=== PATIENT | female | born 1985 | race Caucasian/White ===

== ENCOUNTER 2018-12-19 18:47 | Inpatient (IN) | payer OTHER ==
[~2018-12-19] VITALS: Ht 167.6 cm; Wt 106.1 kg
[~2018-12-19 18:47] MED LIST: IRON PO; SYNTHROID PO
--- OUTSIDE RECORDS SUMMARY | 2018-12-19 18:51 | XMS REPORT | Continuity of Care Document ---
Author Author [facility] [employer] Organization [facility] Address Unknown Phone Unavailable Care Team Providers Care Neurological Physiotherapist Name Role Phone [facility] [employer] Information [employer] Unavailable Unavailable Problems Problem Status Onset Date Classification Date Reported Comments Source PAIN IN KNEE-M25.569 STAT OK TO A Active 08/19/2015 [facility] 723.1 - CERVICALGIA Active 10/29/2014 [facility] [place] Discharge Diagnosis: Neck pain 09/30/2014 10/03/2014 [facility] Discharge Diagnosis: Headache 09/30/2014 10/03/2014 [facility] Discharge Diagnosis: Muscle strain 09/30/2014 10/03/2014 [facility] NECK PAIN Active 09/30/2014 [facility] Abdominal pain Active Problem 08/22/2015 [facility] Anemia Active Problem 08/22/2015 [facility] Gallbladder pain Resolved Problem 08/22/2015 [facility] Laparoscopic cholecystectomy Active Problem 08/22/2015 [facility] Thyroid disease1 Active Problem 08/22/2015 [facility] Tonsillitis Resolved Problem 08/22/2015 [facility] Medications Medication Details Route Status Patient Instructions Ordering Provider Order Date Source Cyclobenzaprine hydrochloride 10 MG Oral Tablet [Flexeril] 10 mg, PO, TID, PRN Muscle Spasm, X 10 day, # 30 tab, 0 Refill(s) Active 09/30/2014 [facility] Benadryl 12.5 mg, 0.25 mL, Route: IVP, Drug form: INJ, ONCE, Dosing Weight 156.818, kg, Priority: STAT, Start date: 09/30/14 12:15:00, Stop date: 09/30/14 12:15:00Notes: (Same as: Benadryl) Inactive 09/30/2014 [facility] ketOROLAC 30 mg/mL injectable solution 30 mg, 1 mL, Route: IV, Drug form: INJ, ONCE, Dosing Weight 156.818, kg, Start date: 09/30/14 12:15:00, Stop date: 09/30/14 12:15:00Notes: (Same as:Toradol) IV bolus must be given >15 seconds. Give IM administration slowly and deeply into the muscle. Not for use > 4 days MEDICATION WASTE Product Size: 30 mg Product Wasted: ___ mg Inactive 09/30/2014 [facility] Reglan 10 mg, 2 mL, Route: IVP, Drug form: INJ, ONCE, Dosing Weight 156.818, kg, Priority: STAT, Start date: 09/30/14 12:15:00, Stop date: 09/30/14 12:15:00Notes: (Same as: Reglan) Inactive 09/30/2014 [facility] Flexeril 10 mg, Route: PO, ONCE, Dosing Weight 156.818, kg, Priority: STAT, Start date: 09/30/14 11:18:00, Stop date: 09/30/14 11:18:00 Inactive 09/30/2014 [facility] Acetaminophen 325 MG / Hydrocodone Bitartrate 10 MG Oral Tablet [[place] 10/325] 1 tab, Route: PO, Dosing Weight 156.818, kg, ONCE, Start date: 09/30/14 11:18:00, Stop date: 09/30/14 11:18:00 Inactive 09/30/2014 [facility] Allergies, Adverse Reactions, Alerts Substance Category Reaction Severity Reaction type Status Date Reported Comments Source Ceclor Assertion Drug allergy Active [facility] Immunizations No Data Provided for This Section Results Order Name Results Value Reference Range Date Interpretation Comments Source CHEM PANEL Globulin 3.4 2.0 - 4.0 09/30/2014 [facility] CHEM PANEL A/G Ratio 1.1 0.7 - 1.6 09/30/2014 [facility] CHEM PANEL B/C Ratio 21 6 - 25 09/30/2014 [facility] CHEM PANEL AGAP 7.8 10.0 - 20.0 09/30/2014 [facility] CHEM PANEL Albumin Lvl 3.6 3.5 - 5.0 09/30/2014 [facility] CHEM PANEL ALT 22 0 - 65 09/30/2014 [facility] CHEM PANEL Glucose Lvl 86 70 - 99 09/30/2014 <sup>2</sup>Interpretive Data: Adult reference range values reflect the clinical guidelines
of the [employer]. [facility] CHEM PANEL AST 15 0 - 37 09/30/2014 [facility] CHEM PANEL Alk Phos 63 39 - 136 09/30/2014 [facility] CHEM PANEL Bili Total 0.6 0.2 - 1.3 09/30/2014 [facility] CHEM PANEL CO2 29 24 - 32 09/30/2014 [facility] CHEM PANEL BUN 17 7 - 22 09/30/2014 [facility] CHEM PANEL Total Protein 7.0 6.4 - 8.4 09/30/2014 [facility] CHEM PANEL eGFR 101 09/30/2014 <sup>1</sup>Result Comment: The eGFR is calculated using the CKD-EPI formula. In most young, healthy individuals the eGFR will be >90 mL/min/1.73m2. The eGFR declines with age. An eGFR of 60-89 may be normal in some populations, particularly the elderly, for whom the CKD-EPI formula has not been extensively validated. Use of the eGFR is not recommended in the following populations:& lt;br/>
Individuals with unstable creatinine concentrations, including patients and those with serious co-morbid conditions.

Patients with extremes in muscle mass or diet.

The data above are obtained from the National Kidney Disease Education Program (NKDEP) which additionally recommends that when the eGFR is used in patients with extremes of body mass index for purposes of drug dosing, the eGFR should be multiplied by the estimated BMI. [facility] CHEM PANEL Potassium Lvl 3.8 3.5 - 5.1 09/30/2014 [facility] CHEM PANEL Sodium Lvl 140 135 - 145 09/30/2014 [facility] CHEM PANEL Creatinine Lvl 0.8 0.5 - 1.4 09/30/2014 [facility] CHEM PANEL Calcium Lvl 8.2 8.5 - 10.5 09/30/2014 [facility] CHEM PANEL Chloride Lvl 107 95 - 109 09/30/2014 [facility] HEMATOLOGY Segs-Bands # 5.2 1.5 - 8.1 09/30/2014 [facility] HEMATOLOGY Lymphocytes # 2.2 1.0 - 5.5 09/30/2014 [facility] HEMATOLOGY Monocytes # 0.4 0.0 - 0.8 09/30/2014 [facility] HEMATOLOGY Eosinophils # 0.4 0.0 - 0.5 09/30/2014 [facility] HEMATOLOGY Basophils # 0.1 0.0 - 0.2 09/30/2014 [facility] HEMATOLOGY Basophils 1.1 0.0 - 1.0 09/30/2014 [facility] HEMATOLOGY Eosinophils 4.5 0.0 - 4.0 09/30/2014 [facility] [place] Monocytes 4.7 2.0 - 12.0 09/30/2014 [facility] [place] Lymphocytes 26.5 20.0 - 40.0 09/30/2014 [facility] [place] Segs 63.2 45.0 - 75.0 09/30/2014 [facility] MCHC 33.1 32.0 - 36.0 09/30/2014 [facility] [place] RDW 14.5 11.5 - 14.5 09/30/2014 [facility] [place] MCH 27.6 27.0 - 31.0 09/30/2014 [facility] [place] MCV 83.5 80.0 - 98.0 09/30/2014 [facility] [place] Platelet 305 133 - 450 09/30/2014 [facility] [place] MPV 7.8 7.4 - 10.4 09/30/2014 [facility] [place] RBC 4.41 4.20 - 5.40 09/30/2014 [facility] [place] Hgb 12.2 12.0 - 16.0 09/30/2014 [facility] [place] WBC 8.2 3.7 - 10.4 09/30/2014 [facility] [place] Hct 36.9 36.0 - 48.0 09/30/2014 [facility] Pathology Reports No Data Provided for This Section Diagnostic Reports Report Value Date Source Knee wo contrast MRI MR LEFT KNEE WITHOUT CONTRAST HISTORY: pain in knee, 30-year-old female reports left knee pain and mechanical symptoms and instability medially for approximately 2 days after twisting injury during fall, pain with squatting, pain with weightbearing COMPARISON: None available TECHNIQUE: Multiplanar, multisequence noncontrast imaging of the knee. FINDINGS: MENISCI: 1. Medial meniscus: Intact. 2. Lateral meniscus: Intact. CARTILAGE: 3. Medial compartment cartilage: Normal. 4. Lateral compartment cartilage: Normal. CRUCIATE LIGAMENTS: 5. Anterior cruciate ligament: Relatively large elongated cystlike fluid collection within the substance of the ACL measures approximately 5 x 5 mm in cross- section and 32 mm in length, extending throughout the entire ligament. 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 6. Posterior cruciate ligament: Normal. COLLATERAL LIGAMENTS: 7. Medial collateral ligament complex: Mild soft tissue inflammatory signal tracking along the tibial collateral ligament and mild thickening and abnormal signal of the tibial collateral ligament at the femoral attachment compatible with grade 1-2 medial collateral ligament sprain. 8. Lateral collateral ligament complex: Normal. EXTENSOR MECHANISM: 9. Moderate diffuse thinning of the cartilage of the lateral patellar facet with prominent surface fibrillation compatible with moderate chondromalacia. 10. Marked lateral patellar subluxation measuring 12 mm. 11. No evidence of recent transient patellar dislocation. 12. Partial tear of the MPFL at the attachment to the medial patella (axial series 14 images 11-13) without significant soft tissue inflammatory signal suggesting this may represent a chronic tear. 13. Inflammatory signal in the superior aspect of the infrapatellar fat-pad. 14. Borderline excessive lateralization of the tibial tubercle. Tibial tubercle- trochlear groove distance: 19 mm. (normal less than 15-20 mm) 15. Moderate lateral patellar tilting. Patellar tilt angle: 23 degrees. (normal less than 15 degrees) 16. No patella brii. Patellar height ratio: 1.27. (normal less than 1.3) 17. Intact patellar and quadriceps tendons. OTHER: 18. No fracture or bone contusion. 19. Moderate joint effusion. IMPRESSION: 1. [id number] medial collateral ligament sprain. 2. Prominent intraligamentous fluid throughout the ACL with degenerative subcortical osseous cystic change in the tibia at the ACL attachment compatible with degenerative intraligamentous ganglion cyst. 3. Multiple findings associated with lateral patellar tracking/lateral patellofemoral impingement with chronic-appearing partial tear of the MPFL at the patellar attachment. 4. Moderate joint effusion. Thank you for referring your patient to [facility] and [facility]. SL: [id number] 08/19/2015 [facility] Consultation Notes No Data Provided for This Section Discharge Summaries No Data Provided for This Section History and Physicals No Data Provided for This Section Vital Signs Vital Sign Value Date Comments Source Height 165.1 cm 09/30/2014 [facility] BMI Calculated 57.53 09/30/2014 [facility] Weight 156.818 09/30/2014 [facility] Respitory Rate 20 09/30/2014 [facility] Heart Rate 71 09/30/2014 [facility] Temperature Oral (F) 98.2 F 09/30/2014 [facility] Systolic (mm Hg) 139 09/30/2014 [facility] Diastolic (mm Hg) 86 09/30/2014 [facility] Encounters Location Location Details Encounter Type Encounter Number Reason For Visit Attending Provider ADM Date DC Date Status Source [facility] [id number] Marin Chang 09/30/2014 09/30/2014 [facility] Outpatient [id number] Maximiliano Escalante 08/19/2015 08/20/2015 [facility] Outpatient [id number] VINCENZO SANDY 04/04/2017 Active [facility] [id number] LINUS MATAMOROS 04/10/2017 Active [facility] [id number] LINUS MATAMOROS 04/25/2017 Active [facility] [id number] VINCENZO SENAH 05/02/2017 Active [facility] [id number] VINCENZO SANDY 05/11/2017 Active [facility] [id number] JUAN A ESTILL 05/26/2017 Active [facility] [id number] VINCENZO SENAH 06/27/2017 Active [facility] [id number] VINCENZO SANDY 07/11/2017 Active [facility] [id number] LINUS MATAMOROS 07/17/2017 Active [facility] [id number] LINUS MATAMOROS 08/01/2017 Active [facility] [id number] VINCENZO SANDY 08/08/2017 Active [facility] [id number] LINUS MATAMOROS 08/30/2017 Active [facility] [id number] LINUS MATAMOROS 09/07/2017 Active [facility] [id number] LINUS MATAMOROS 09/18/2017 Active [facility] [id number] VINCENZO [facility] 09/19/2017 Active [facility] [id number] VINCENZO SANDY 10/27/2017 Active [facility] [id number] JUAN A ESTILL 11/10/2017 Active [facility] [id number] JUAN A ESTILL 12/07/2017 Active [facility] [id number] JUAN A ESTILL 12/21/2017 Active [facility] [id number] VINCENZO SENAH 01/09/2018 Active [facility] [id number] VINCENZO SANDY 02/13/2018 Active [facility] [id number] LINUS MATAMOROS 02/28/2018 Active [facility] [id number] LINUS MATAMOROS 03/12/2018 Active [facility] Out[facility] [id number] LINUS MATAMOROS 04/09/2018 Active [facility] Out[facility] [id number] LINUS MATAMOROS 07/09/2018 Active [facility] Out[facility] [id number] LINUS MATAMOROS 08/06/2018 Active [facility] Outpatient [id number] VINCENZO [facility] 08/07/2018 Active [facility] Out[facility] [id number] ILNUS MATAMOROS 08/16/2018 Active [facility] Outpatient [id number] Vincenzo [facility] 01/01/2019 [facility] Procedures Procedure Code Date Perfomer Comments Source Cholecystectomy [id number] [facility] Neck procedure [id number] [facility] Tonsillectomy [id number] [facility] Assessment and Plan No Data Provided for This Section Plan of Care No Data Provided for This Section Social History Social History Date Source Social History TypeResponse Smoking Status Never smoker; Ready to change: No; Concerns about tobacco use in household: No; Exposure to Tobacco Smoke None; Cigarette Smoking Last 365 Days No; Reg Smoking Cessation Counseling No 09/30/2014 [facility] Family History No Data Provided for This Section Advance Directives No Data Provided for This Section Functional Status No Data Provided for This Section
--- OUTSIDE RECORDS SUMMARY | 2018-12-19 18:52 | XMS REPORT ---
Author [facility] Address Unknown Phone Unavailable Care Team Providers Care Publicist Name Role Phone Unavailable Unavailable Payers Payer Name Policy Type Policy Number Effective Date Expiration Date Problems This patient has no known problems. Allergies, Adverse Reactions, Alerts Allergy Name Allergy Type Status Severity Reaction(s) Onset Date Inactive Date Treating Clinician Comments cefaclor DA Active U 2018-07-07 00:00:00 CECLOR DA Active AL 2013-11-26 00:00:00 Medications This patient has no known medications. Results Test Description Test Time Test Comments Text Results Atomic Results Result Comments GLUBED 2018-07-07 22:55:00 GLUBED (test code=GLUBED) 157 mg/dL 74-106 Performed by certified hydration plant operator at [facility] - CT ABD PELVIS [id number] 21:24:00 Name: IBIS BYERS [facility] : 1985 Age/S: 33 / F [place] [facility] Unit #: [id number] Loc: [place] [address] Phys: Devan So MD Acct: [id number] Dis Date: Status: REG ER PHONE #: [phone] Exam Date: 07/07/20182024 FAX #: [phone] Reason: R flank pain/abd pain EXAMS: CPT CODE: [id number] CT ABD PELVIS W/CONT 13304 HISTORY: Right flank pain/abdominal pain TECHNIQUE: Immediate and delayed [address] images were obtained through the abdomen and pelvis after IV administration of 100 mL of Isovue-370 contrast. Sagittal and coronal reformatted images were generated. Automated exposure control for dose reduction. COMPARISON: 11/26/13 FINDINGS: Lung bases are clear. Normal heart size. Cholecystectomy. Liver, pancreas, spleen, adrenal glands, and kidneys are unremarkable. Limited evaluation the GI tract without oral contrast. Postsurgical changes of the stomach. Small bowel, appendix, and colon are unremarkable. No free air or free fluid. No lymphadenopathy. Abdominal aorta is normal in caliber. Urinary bladder is unremarkable. Uterus is unremarkable. Ovaries are not well delineated. Small pelvic free fluid. Regional osseous structures are unremarkable. IMPRESSION: No acute intra-abdominal process. Cholecystectomy. Postsurgical changes of the stomach. at 2124 Reported and signed by: Dasha Posada D.O. CC: Devan So MD; Alverto Liz MD Technologist:GIANFRANCO SANCHEZ CT CTDI: DLP: Trnscb Da te/Time: 07/07/2018 (2123) [email or web address] Orig Print D/T: S: 0 07/07/2018 (2126) CTDI: DLP: PAGE 1 Signed Report VENOUS BLOOD [id number] 21:09:00 * Test Item Value Reference Range Comments VENOUS BLOOD GAS PH (test code=PHV) 7.40 7.30-7.40 VENOUS BLOOD GAS PCO2 (test code=PCO2V) 40.9 mm Hg 39.0-51.0 VENOUS BLOOD GAS PO2 (test code=PO2V) < 44.2 mm Hg 30.0-50.0 VBG HCO3 (test code=HCO3V) 24.9 mmol/L 17.0-30.0 VBG BASE EXCESS (test code=YAMIL) 0.1 mmol/L -5.0-5.0 VENOUS BLOOD GAS O2 SAT. (test code=O2SATV) 49 % 94-98 VENOUS BLOOD GAS FIO2 (test code=FIO2V) 21.0 PT. HGB (test code=PHGBVBG) 12.0 gram/dL 11.5-15.5 VENOUS BLOOD GAS SITE (test code=SITEV) IVC HEMATOCRIT (test code=HCT/VBG) 35 % 42-52 HGB O2 SAT (test code=HBOSAT) 48.5 % 94.00-98.00 CARBOXYHEMOGLOBIN (test code=HOHGBT) 0.8 %totalHg 0.5-1.5 METHEMOGLOBIN (test code=METHGB) 0.6 % 0.0-1.50 HCG SERUM [id number] 20:15:00* Test Item Value Reference Range Comments HCG SERUM QUAL (test code=HCGQL) NEGATIVE NEGATIVE This HCGQL test is NOT applicable for MALE patients.Check with nurse about probable order error.If Tumor Marker Test needed, nurse should order test "HCGTU"(Test #[id number]) [id number] 20:06:00* Test Item Value Reference Range Comments GLUBED (test code=GLUBED) 237 mg/dL 74-106 Performed by certified hydration plant operator at [facility] URINALYSIS [id number] 18:45:00* Test Item Value Reference Range Comments UA COLOR (test code=COLU) YELLOW YELLOW UA APPEARANCE (test code=APPU) CLEAR CLEAR UA GLUCOSE DIPSTICK (test code=DGLUU) >=500 mg/dL NEGATIVE UA BILIRUBIN DIPSTICK (test code=BILU) NEGATIVE mg/dL NEGATIVE UA KETONE DIPSTICK (test code=KETU) Negative mg/dL NEGATIVE UA SPECIFIC GRAVITY (test code=SGU) 1.029 1.001-1.035 UA BLOOD DIPSTICK (test code=TYLOR) Negative NEGATIVE UA PH DIPSTICK (test code=KACIE) 7.0 5.0-8.0 UA PROTEIN DIPSTICK (test code=PROU) Negative mg/dL NEGATIVE UA UROBILINIOGEN DIPSTICK (test code=URO) 0.2 mg/dL NEGATIVE UA NITRITE DIPSTICK (test code=SINDY) NEGATIVE NEGATIVE UA LEUKOCYTE ESTERASE W REFLEX (test code=LEUUR) NEGATIVE NEGATIVE UA WBC (test code=WBCU) 0-5 #/HPF 0-5 UA RBC (test code=RBCU) 0-3 #/HPF 0-5 UA EPITHELIAL CELLS (test code=EPIU) FEW per HPF FEW UA BACTERIA (test code=BACU) FEW #/HPF NONE UA HYALINE CAST (test code=HYALU) 0-2 #/LPF 0-5 UA MUCUS (test code=MUCU) FEW #/LPF FEW Urine Source? Clean CatchURINALYSIS [id number] 18:42:00* Test Item Value Reference Range Comments UA COLOR (test code=COLU) YELLOW YELLOW UA APPEARANCE (test code=APPU) CLEAR CLEAR UA GLUCOSE DIPSTICK (test code=DGLUU) >=500 mg/dL NEGATIVE UA BILIRUBIN DIPSTICK (test code=BILU) NEGATIVE mg/dL NEGATIVE UA KETONE DIPSTICK (test code=KETU) Negative mg/dL NEGATIVE UA SPECIFIC GRAVITY (test code=SGU) 1.029 1.001-1.035 UA BLOOD DIPSTICK (test code=TYLOR) Negative NEGATIVE UA PH DIPSTICK (test code=KACIE) 7.0 5.0-8.0 UA PROTEIN DIPSTICK (test code=PROU) Negative mg/dL NEGATIVE UA UROBILINIOGEN DIPSTICK (test code=URO) 0.2 mg/dL NEGATIVE UA NITRITE DIPSTICK (test code=SINDY) NEGATIVE NEGATIVE UA LEUKOCYTE ESTERASE W REFLEX (test code=LEUUR) NEGATIVE NEGATIVE UA WBC (test code=WBCU) per HPF 0-5 Urine Source? Clean CatchBASIC METABOLIC [id number] 18:00:00* Test Item Value Reference Range Comments SODIUM (test code=NA) 138 mmol/L 136-145 POTASSIUM (test code=K) 3.6 mmol/L 3.5-5.1 CHLORIDE (test code=CL) 103.0 mmol/L 98-107 CARBON DIOXIDE (test code=CO2) 27.0 mmol/L 21-32 ANION GAP (test code=GAP) 11.6 10-20 GLUCOSE (test code=GLU) 312 mg/dL 74-106 BLOOD UREA NITROGEN (test code=BUN) 16 mg/dL 7-18 GLOMERULAR FILTRATION RATE (test code=GFR) > 60 mL/min >=60 Estimated GFR by using Modified MDRD formula.Chronic kidney disease is defined as either kidney damageor GFR <60 mL/min/1.73 m2 for >3 months. CREATININE (test code=CREAT) 0.90 mg/dL 0.55-1.02 Note change in reference range due to change in reagent. BUN/CREATININE RATIO (test code=BUN/CREA) 18.2 10-20 CALCIUM (test code=CA) 8.7 mg/dL 8.5-10.1 HEPATIC FUNCTION [id number] 18:00:00* Test Item Value Reference Range Comments TOTAL PROTEIN (test code=PROT) 6.9 gram/dL 6.4-8.2 ALBUMIN (test code=ALB) 3.8 g/dL 3.4-5.0 GLOBULIN (test code=GLOB) 3.1 gram/dL 2.7-4.2 ALBUMIN/GLOBULIN RATIO (test code=A/G) 1.2 0.75-1.50 BILIRUBIN TOTAL (test code=BILT) 1.00 mg/dL 0.0-1.0 BILIRUBIN DIRECT (test code=BILD) 0.24 mg/dL 0.0-0.20 SGOT/AST (test code=AST) 9 IUnit/L 15-37 SGPT/ALT (test code=ALT) 20 IUnit/L 12-78 ALKALINE PHOSPHATASE TOTAL (test code=ALKP) 48 IUnit/L 45-117 Note change in reference range due to change in reagent. [id number] 18:00:00* Test Item Value Reference Range Comments TROPONIN-I (test code=TROPI) <0.015 ng/mL 0-0.045 BASIC METABOLIC [id number] 17:35:00* Test Item Value Reference Range Comments SODIUM (test code=NA) 138 mmol/L 136-145 POTASSIUM (test code=K) 3.6 mmol/L 3.5-5.1 CHLORIDE (test code=CL) 103.0 mmol/L 98-107 CARBON DIOXIDE (test code=CO2) mmol/L 21-32 ANION GAP (test code=GAP) 10-20 GLUCOSE (test code=GLU) mg/dL 74-106 BLOOD UREA NITROGEN (test code=BUN) mg/dL 7-18 GLOMERULAR FILTRATION RATE (test code=GFR) mL/min >=60 CREATININE (test code=CREAT) mg/dL 0.55-1.02 BUN/CREATININE RATIO (test code=BUN/CREA) 10-20 CALCIUM (test code=CA) mg/dL 8.5-10.1 HEPATIC FUNCTION [id number] 17:35:00* Test Item Value Reference Range Comments TOTAL PROTEIN (test code=PROT) gram/dL 6.4-8.2 ALBUMIN (test code=ALB) g/dL 3.4-5.0 GLOBULIN (test code=GLOB) gram/dL 2.7-4.2 ALBUMIN/GLOBULIN RATIO (test code=A/G) 0.75-1.50 BILIRUBIN TOTAL (test code=BILT) mg/dL 0.0-1.0 BILIRUBIN DIRECT (test code=BILD) mg/dL 0.0-0.20 SGOT/AST (test code=AST) IUnit/L 15-37 SGPT/ALT (test code=ALT) IUnit/L 12-78 ALKALINE PHOSPHATASE TOTAL (test code=ALKP) IUnit/L 45-117 [id number] 17:35:00* Test Item Value Reference Range Comments TROPONIN-I (test code=TROPI) ng/mL 0-0.045 CBC W/AUTO [id number] 17:21:00* Test Item Value Reference Range Comments WHITE BLOOD CELL (test code=WBC) 10.1 K/mm3 4.5-12.5 RED BLOOD CELL (test code=RBC) 4.20 mill/mm3 3.7-5.2 HEMOGLOBIN (test code=HGB) 12.2 gram/dL 11.5-15.5 HEMATOCRIT (test code=HCT) 38.7 % 36.0-46.0 MEAN CELL VOLUME (test code=MCV) 92.1 fL 80-98 MEAN CELL HGB (test code=MCH) 29.0 picogram 27.0-33.0 MEAN CELL HGB CONCETRATION (test code=MCHC) 31.5 gram/dL 33.0-36.0 RED CELL DISTRIBUTION WIDTH (test code=RDW) 13.2 % 11.6-16.2 RED CELL DISTRIBUTION WIDTH SD (test code=RDW-SD) 43.8 fL 37.0-51.0 PLATELET COUNT (test code=PLT) 339 K/mm3 150-450 MEAN PLATELET VOLUME (test code=MPV) 9.6 fL 6.7-11.0 NEUTROPHIL % (test code=NT%) 64.6 % 39.0-69.0 IMMATURE GRANULOCYTE % (test code=IG%) 0.4 % 0.0-5.0 LYMPHOCYTE % (test code=LY%) 25.7 % 25.0-55.0 MONOCYTE % (test code=MO%) 7.4 % 0.0-10.0 EOSINOPHIL % (test code=EO%) 1.4 % 0.0-5.0 BASOPHIL % (test code=BA%) 0.5 % 0.0-1.0 NUCLEATED RBC % (test code=NRBC%) 0.0 % 0-0 NEUTROPHIL # (test code=NT#) 6.52 K/mm3 1.8-7.7 IMMATURE GRANULOCYTE # (test code=IG#) 0.04 x10 3/uL 0-0.03 LYMPHOCYTE # (test code=LY#) 2.60 K/mm3 1.0-5.0 MONOCYTE # (test code=MO#) 0.75 K/mm3 0-0.8 EOSINOPHIL # (test code=EO#) 0.14 K/mm3 0.0-0.5 BASOPHIL # (test code=BA#) 0.05 K/mm3 0.0-0.2 NUCLEATED RBC # (test code=NRBC#) 0.00 K/mm3 0.0-0.1 MANUAL DIFF REQUIRED (test code=MDIFF) NO CBC W/AUTO [id number] 17:20:00* Test Item Value Reference Range Comments WHITE BLOOD CELL (test code=WBC) K/mm3 4.5-12.5 RED BLOOD CELL (test code=RBC) mill/mm3 3.7-5.2 HEMOGLOBIN (test code=HGB) 12.2 gram/dL 11.5-15.5 HEMATOCRIT (test code=HCT) 38.7 % 36.0-46.0 MEAN CELL VOLUME (test code=MCV) fL 80-98 MEAN CELL HGB (test code=MCH) picogram 27.0-33.0 MEAN CELL HGB CONCETRATION (test code=MCHC) gram/dL 33.0-36.0 RED CELL DISTRIBUTION WIDTH (test code=RDW) % 11.6-16.2 RED CELL DISTRIBUTION WIDTH SD (test code=RDW-SD) fL 37.0-51.0 PLATELET COUNT (test code=PLT) K/mm3 150-450 MEAN PLATELET VOLUME (test code=MPV) fL 6.7-11.0 NEUTROPHIL % (test code=NT%) % 39.0-69.0 IMMATURE GRANULOCYTE % (test code=IG%) % 0.0-5.0 LYMPHOCYTE % (test code=LY%) % 25.0-55.0 MONOCYTE % (test code=MO%) % 0.0-10.0 EOSINOPHIL % (test code=EO%) % 0.0-5.0 BASOPHIL % (test code=BA%) % 0.0-1.0 NEUTROPHIL # (test code=NT#) K/mm3 1.8-7.7 LYMPHOCYTE # (test code=LY#) K/mm3 1.0-5.0 MONOCYTE # (test code=MO#) K/mm3 0-0.8 EOSINOPHIL # (test code=EO#) K/mm3 0.0-0.5 BASOPHIL # (test code=BA#) K/mm3 0.0-0.2
--- OUTSIDE RECORDS SUMMARY | 2018-12-19 18:52 | XMS REPORT | Summary of Care ---
Author Author PEYTON SWAIN M.D. Unknown Address [facility] Phone Unavailable Care Team Providers Care Physician Coder Name Role Phone BRYNN Joshi, PEYTON Unavailable Unavailable SENG CHACON CT, SAMMI LAO Unavailable Unavailable KENA CHACON, GREER SIMEON Unavailable Unavailable PEYTON SWAIN MD Unavailable Unavailable SENG Joshi, SAMMI Unavailable Unavailable GLEN ETIENNE MD, HARRY Ball Unavailable Unavailable Unavailable Unavailable Functional Status Name Dates Details Functional status health issues are not documented Status: Name Dates Details Cognitive status health issues are not documented Status: Problems Name Dates Details S/P arthroscopic knee surgery (V45.89, Z98.890) Status: Active Left knee pain (719.46, M25.562) Status: Active Acute medial meniscal tear, right, initial encounter (836.0, S83.241A) Status: Active Tear of medial collateral ligament of knee, left, initial encounter (844.1, S83.412A) Status: Active Greater trochanteric bursitis of left hip (726.5, M70.62) Status: Active Greater trochanteric bursitis of both hips (726.5, M70.61) Status: Active Acute lumbar radiculopathy (724.4, M54.16) Status: Active Tear of right acetabular labrum, initial encounter (843.8, S73.191A) Status: Active Chronic rhinitis (472.0, J31.0) Status: Active Hypertrophy of nasal turbinates (478.0, J34.3) Status: Active Medications Name Dates Details Synthroid 50 MCG Oral Tablet TAKE 1 TABLET DAILY. Active Ferrous Sulfate TABS one tab QD PER CHART * Refills: 0 Active Methotrexate (Anti-Rheumatic) 2.5 MG Oral Tablet * Refills: 0 Active Cetirizine HCl 1 MG/ML SYRP * Refills: 0 Active Flonase SUSP * Refills: 0 Active metFORMIN HCl TABS * Refills: 0 Active Ipratropium [place] 0.06 % Nasal Solution USE 2 SPRAYS IN EACH NOSTRIL 2-3 TIMES DAILY. * Quantity: 1 Refills: 6 PEYTON SWAIN M.D. * Start : 14-Dec-2018 Active Allergies and Adverse Reactions Name Dates Details Ceclor CAPS (Allergy) Status: Active Past Medical History Name Dates Details History of arthritis (V13.4, Z87.39) Status: Resolved History of backache (V13.59, Z87.39) Status: Resolved History of hemorrhoids (V13.89, Z87.19) Status: Resolved History of hypothyroidism (V12.29, Z86.39) Status: Resolved History of Other and unspecified ovarian cysts (620.2, N83.20) Status: Resolved History of Unclassifiable eczema (692.9, L30.9) Status: Resolved Procedures Procedure Dates Details History of Neck Surgery Completed History of Cervical Vertebral Fusion Completed History of Gastric Surgery For Morbid Obesity Completed History of Cholecystectomy Completed History of Tonsillectomy With Adenoidectomy Completed Immunization Name Dates Details Immunizations not documented Family History Name Dates Details Family history of Hypertension (V17.49) Status: Active Family history of Systemic Lupus Erythematosus Status: Active Family history of Allergy (995.3, T78.40XA) Status: Active Family history of asthma (V17.5, Z82.5) Status: Active Name Dates Details Family history of Coronary Artery Disease (V17.49) Status: Active Family history of Hypertension (V17.49) Status: Active Family history of Skin Cancer (V16.8) Status: Active Family history of Esophageal Cancer (V16.0) Status: Active Social History Name Dates Details - Status: Name Dates Details Current some day smoker Never smoker Vital Signs Date Test Result Details [id number] BP Systolic 122 mm[Hg] Status: Comments: Location: LUE; Position: Sitting BP Diastolic 81 mm[Hg] Status: Comments: Location: LUE; Position: Sitting Height 66 in Status: Weight 242.0625 lb Status: Body Mass Index Calculated 39.07 kg/m2 Status: Body Surface Area Calculated 2.17 m2 Status: Heart Rate 98.4 /min Status: Results Date Description Value Details Results not documented Plan of Care Name Dates Details Planned Observations Planned Goals not documented Planned Encounters Appointment; PEYTON SWAIN M.D. On: 15-Jan-2019 10:15 Interventions Provided Medication Changes* Ipratropium [place] 0.06 % Nasal Solution - Start Labs/Procedures/Imaging* Tobacco Use Screening; Done: 14 Dec 2018 Plan* 1. Will begin Atrovent nasal spray for 4 weeks. FU in 4 weeks. Instructions Name Dates Details Instructions not documented Encounters Appointment; HARRY CARROLL M.D. Encounter Diagnosis: Problem not documented On: 27-Jul-2017 9:45 Appointment; HARRY CARROLL M.D. Encounter Diagnosis: Problem not documented On: 24-Aug-2017 10:15 Appointment; HARRY CARROLL M.D. Encounter Diagnosis: Problem not documented On: 21-Sep-2017 10:15 Appointment; HARRY CARROLL M.D. Encounter Diagnosis: Problem not documented On: 03-May-2018 11:00 Appointment; HARRY CARROLL M.D. Encounter Diagnosis: Problem not documented On: 03-May-2018 13:00 Appointment; HARRY CARROLL M.D. Encounter Diagnosis: Problem not documented On: 14-Jun-2018 9:30 Appointment; HARRY CARROLL M.D. Encounter Diagnosis: Problem not documented On: 25-Jun-2018 10:00 Appointment; HARRY CARROLL M.D. Encounter Diagnosis: Problem not documented On: 09-Jul-2018 13:00 Appointment; PEYTON SWAIN M.D. Encounter Diagnosis: Problem not documented On: 14-Dec-2018 10:00
--- OUTSIDE RECORDS SUMMARY | 2018-12-19 18:52 | XMS REPORT | Summary of Care ---
Author Author [facility] Organization [facility] Address Unknown Phone Unavailable Encounter HQ Aj_narcisa(FIN) [id number] Date(s): 08/19/15 - 08/19/15 [facility] [address] [place] [address]- Discharge Disposition: Home Attending Physician: Maximiliano Escalante MD Referring Physician: Maximiliano Escalante MD Vital Signs No data available for this section Problem List Condition Effective Dates Status Health Status Informant Abdominal Active pain(Confirmed) Anemia(Confirmed) Active Gallbladder Resolved pain(Confirmed) Laparoscopic Active cholecystectomy(Conf irmed) Thyroid Active disease(Confirmed)1 Tonsillitis(Confirme Resolved d) 1on meds Allergies, Adverse Reactions, Alerts Substance Reaction Severity Status Ceclor Active Medications No data available for this section Results No data available for this section Immunizations No data available for this section Procedures Procedure Date Related Diagnosis Body Site Cholecystectomy Neck procedure Tonsillectomy Social History Social History Type Response Smoking Status Never smoker; Ready to change: No; Concerns about tobacco use in household: No; Exposure to Tobacco Smoke None; Cigarette Smoking Last 365 Days No; Reg Smoking Cessation Counseling No Assessment and Plan No data available for this section
--- OUTSIDE RECORDS SUMMARY | 2018-12-19 18:52 | XMS REPORT | Summary of Care ---
Author Organization Unknown Address Unknown Phone Unavailable Encounter LEWIS Schaefer(KURT) [id number] Date(s): 09/30/14 - 09/30/14 [facility] [address] [place] [address]- [phone] Discharge Diagnosis: Neck pain Discharge Diagnosis: Headache Discharge Diagnosis: Muscle strain Discharge Disposition: Home Physician Attending: Marin Downing MD Vital Signs Most recent to 1 oldest [Reference Range]: Height 165.1 cm (09/30/14 10:53 AM) Temperature Oral 98.2 DegF [96.4-99.1 DegF] (09/30/14 10:53 AM) Blood Pressure 139/86 mmHg [90-140/60-90 mmHg] (09/30/14 10:53 AM) Respiratory Rate 20 BRMIN [14-20 BRMIN] (09/30/14 10:53 AM) Peripheral Pulse 71 bpm Rate [60-100 bpm] (09/30/14 10:53 AM) Weight 156.818 kg (09/30/14 10:53 AM) Body Mass Index 57.53 m2 (09/30/14 10:53 AM) Problem List Condition Effective Dates Status Health Status Informant Abdominal Active pain(Confirmed) Anemia(Confirmed) Active Gallbladder Resolved pain(Confirmed) Laparoscopic Active cholecystectomy(Conf irmed) Thyroid Active disease(Confirmed)1 Tonsillitis(Confirme Resolved d) 1on meds Allergies, Adverse Reactions, Alerts Substance Reaction Severity Status Ceclor Active Medications Benadryl 12.5 mg, 0.25 mL, Route: IVP, Drug form: INJ, ONCE, Dosing Weight 156.818, kg, P riority: STAT, Start date: 09/30/14 12:15:00, Stop date: 09/30/14 12:15:00 Notes: (Same as: Benadryl) Start Date: 09/30/14 Stop Date: 09/30/14 Status: Completed Flexeril 10 mg, Route: PO, ONCE, Dosing Weight 156.818, kg, Priority: STAT, Start date: 0 09/30/14 11:18:00, Stop date: 09/30/14 11:18:00 Start Date: 09/30/14 Stop Date: 09/30/14 Status: Completed Flexeril 10 mg oral tablet 10 mg, PO, TID, PRN Muscle Spasm, X 10 day, # 30 tab, 0 Refill(s) Start Date: 09/30/14 Stop Date: 10/10/14 Status: Ordered ketOROLAC 30 mg/mL injectable solution 30 mg, 1 mL, Route: IV, Drug form: INJ, ONCE, Dosing Weight 156.818, kg, Start d ate: 09/30/14 12:15:00, Stop date: 09/30/14 12:15:00 Notes: (Same as:Toradol) IV bolus must be given >15 seconds. Give IM administration slowly and deeply into the muscle.Not for use > 4 days MEDICATION WASTE Product Size: 30 mgProduct Wasted: ___ mg Start Date: 09/30/14 Stop Date: 09/30/14 Status: Completed [place] 10/325 oral tablet 1 tab, Route: PO, Dosing Weight 156.818, kg, ONCE, Start date: 09/30/14 11:18:00 , Stop date: 09/30/14 11:18:00 Start Date: 09/30/14 Stop Date: 09/30/14 Status: Completed Reglan 10 mg, 2 mL, Route: IVP, Drug form: INJ, ONCE, Dosing Weight 156.818, kg, Priori ty: STAT, Start date: 09/30/14 12:15:00, Stop date: 09/30/14 12:15:00 Notes: (Same as: Reglan) Start Date: 09/30/14 Stop Date: 09/30/14 Status: Completed Results ELECTROLYTES Most recent to 1 oldest [Reference Range]: Sodium Lvl [135-145 140 mEq/L mEq/L] (09/30/14 12:41 PM) Potassium Lvl 3.8 mEq/L [3.5-5.1 mEq/L] (09/30/14 PM) Chloride Lvl [95-109 107 mEq/L mEq/L] (09/30/14 PM) CO2 [24-32 mEq/L] 29 mEq/L (09/30/14 PM) AGAP [10.0-20.0 7.8 mEq/L mEq/L] *LOW* (09/30/14) CHEM PANEL Most recent to 1 oldest [Reference Range]: Creatinine Lvl 0.8 mg/dL [0.5-1.4 mg/dL] (09/30/14 PM) eGFR 101 mL/min/1.73m2 1 *NA* (09/30/14 PM) BUN [7-22 mg/dL] 17 mg/dL (09/30/14 PM) B/C Ratio [6-25] 21 (09/30/14 PM) Glucose Lvl [70-99 86 mg/dL 2 mg/dL] (09/30/14 PM) Total Protein 7.0 g/dL [6.4-8.4 g/dL] (09/30/14 PM) Albumin Lvl [3.5-5.0 3.6 g/dL g/dL] (09/30/14 PM) Globulin [2.0-4.0 3.4 g/dL g/dL] (09/30/14 PM) A/G Ratio [0.7-1.6] 1.1 (09/30/14 PM) Calcium Lvl 8.2 mg/dL [8.5-10.5 mg/dL] *LOW* (09/30/14 PM) ALT [0-65 unit/L] 22 unit/L (09/30/14 PM) AST [0-37 unit/L] 15 unit/L (09/30/14 PM) Alk Phos [39-136 63 unit/L unit/L] (09/30/14 PM) Bili Total [0.2-1.3 0.6 mg/dL mg/dL] (09/30/14 PM) 1Result Comment: The eGFR is calculated using the CKD-EPI formula. In most young, healthy individuals the eGFR will be >90 mL/min/1.73m2. The eGFR declines with age. An eGFR of 60-89 may be normal in some populations, particularly the elderly, for whom the CKD-EPI formula has not been extensively validated. Use of the eGFR is not recommended in the following populations: Individuals with unstable creatinine concentrations, including patients and those with serious co-morbid conditions. Patients with extremes in muscle mass or diet. The data above are obtained from the National Kidney Disease Education Program ( NKDEP) which additionally recommends that when the eGFR is used in patients with extremes of body mass index for purposes of drug dosing, the eGFR should be mul tiplied by the estimated BMI. 2Interpretive Data: Adult reference range values reflect the clinical guidelines of the [place] [employer]. HEMATOLOGY Most recent to 1 oldest [Reference Range]: WBC [3.7-10.4 K/CMM] 8.2 K/CMM (09/30/14:41 PM) RBC [4.20-5.40 4.41 M/CMM M/CMM] (09/30/1441 PM) Hgb [12.0-16.0 g/dL] 12.2 g/dL (09/30/1441 PM) Hct [36.0-48.0 %] 36.9 % (09/30/14:41 PM) MCV [80.0-98.0 fL] 83.5 fL (09/30/14:41 PM) MCH [27.0-31.0 pg] 27.6 pg (09/30/14 PM) MCHC [32.0-36.0 33.1 g/dL g/dL] (09/30/14:41 PM) RDW [11.5-14.5 %] 14.5 % (09/30/1441 PM) Platelet [133-450 305 K/CMM K/CMM] (09/30/1441 PM) MPV [7.4-10.4 fL] 7.8 fL (09/30/14:41 PM) Segs [45.0-75.0 %] 63.2 % (5/12/15 12:41 PM) Lymphocytes 26.5 % [20.0-40.0 %] (09/30/14 12:41 PM) Monocytes [2.0-12.0 4.7 % %] (09/30/14 12:41 PM) Eosinophils [0.0-4.0 4.5 % %] *HI* (09/30/14 12:41 PM) Basophils [0.0-1.0 1.1 % %] *HI* (09/30/14 12:41 PM) Segs-Bands # 5.2 K/CMM [1.5-8.1 K/CMM] (09/30/14 12:41 PM) Lymphocytes # 2.2 K/CMM [1.0-5.5 K/CMM] (09/30/14 12:41 PM) Monocytes # [0.0-0.8 0.4 K/CMM K/CMM] (09/30/14 12:41 PM) Eosinophils # 0.4 K/CMM [0.0-0.5 K/CMM] (09/30/14 12:41 PM) Basophils # [0.0-0.2 0.1 K/CMM K/CMM] (09/30/14 12:41 PM) Immunizations No data available for this section [...]
[2018-12-19] MEDS ORDERED: ONDANSETRON HCL INJ 2MG/ML 2ML 2 MG/ML VIAL IV ONE (19:33)
[2018-12-19] MEDS ORDERED: SODIUM CHLORIDE 0.9% 1000ML 1,000 ML IV STA (19:33)
[2018-12-19] MEDS ORDERED: DIPHENHYDRAMINE HCL INJ 50 MG/ML VIAL IV ONE (19:45)
[2018-12-19] MEDS ORDERED: LIDOCAINE VISC 2% SOLN 15 ML UDC PO ONE (19:45)
[2018-12-19 19:58] LABS: BASOPHILS # (AUTO) 0.1 (0.0-0.1); BASOPHILS % 0.9 % (0.0-1.0); EOSINOPHILS # (AUTO) 0.2 (0.0-0.4); EOSINOPHILS % 3.1 % (0.0-6.0); HEMOGLOBIN 12.4 g/dL (12.0-16.0); LYMPHOCYTES % 28.2 % (18.0-39.1); MEAN CORPUSCULAR HEMOGLOBIN 26.2 pg (28-32); MEAN CORPUSCULAR VOLUME 84.6 fL (81-99); MONOCYTES # (AUTO) 0.4 (0.2-0.8); MONOCYTES % 5.3 % (4.4-11.3); NEUTROPHILS # (AUTO) 4.4 (2.1-6.9); NEUTROPHILS % 62.2 % (38.7-80.0); PLATELET COUNT 300 x10e3/uL (140-360); RED BLOOD COUNT 4.73 x10e6/uL (3.6-5.1); RED CELL DISTRIBUTION WIDTH 17.9 % (11.7-14.4)
[2018-12-19 20:18] LABS: ALANINE AMINOTRANSFERASE 16 IU/L (0-55); ALBUMIN 4.3 g/dL (3.5-5.0); ALBUMIN/GLOBULIN RATIO 1.5 (0.8-2.0); ALKALINE PHOSPHATASE 56 IU/L (40-150); ANION GAP 15.5 mmol/L (8-16); BLOOD UREA NITROGEN 9 mg/dL (7-26); BUN/CREATININE RATIO 12 (6-25); CALCIUM 9.4 mg/dL (8.4-10.2); CARBON DIOXIDE 23 mmol/L (22-29); CHLORIDE 104 mmol/L (98-107); CREATININE, SERUM 0.75 mg/dL (0.57-1.11); EST GLOMERULAR FILTRATION RATE > 60 ML/MIN (60-); GLUCOSE 97 mg/dL (74-118); LIPASE 25 U/L (8-78); POTASSIUM 3.5 mmol/L (3.5-5.1); SODIUM 139 mmol/L (136-145)
[2018-12-19 20:27] LABS: BILIRUBIN,URINE NEGATIVE (NEGATIVE); CLARITY,URINE SL CLOUDY (CLEAR); COLOR,URINE YELLOW (YELLOW); KETONES,URINE 1+ (NEGATIVE); LEUKOCYTE ESTERASE ,URINE TRACE (NEGATIVE); NITRITE,URINE NEGATIVE (NEGATIVE); PROTEIN,URINE DIPSTICK NEGATIVE (NEGATIVE); URINE UROBILINOGEN 0.2 mg/dL (0.2 - 1)
[2018-12-19] MEDS ORDERED: MAGNESIUM/ALUMINUM/SIMETHICONE 30 ML UDC PO ONE (20:30)
[2018-12-19 20:38] LABS: AMORPHOUS SEDIMENT,URINE FEW (FEW); BACTERIA,URINE MODERATE /HPF; EPITHELIAL CELLS,URINE MODERATE /LPF; HYALINE CASTS 0-1 (0-1); PREGNANCY TEST, URINE NEGATIVE (NEGATIVE); WBC,URINE (MAN) 0-5 /HPF (0-5)
[2018-12-19 20:39] LABS: MUCUS,URINE FEW (RARE)
[2018-12-19] MEDS: BELLADONNA ALK/PHENOBARBITAL 5 ML UDC PO SCH (20:39)
--- NOTE | 2018-12-19 22:17 | NUR ---
BOLUS INFUSED, PT PRESSED CALL [facility] STATING FLUIDS ARE COMPLETE AND STILL HAS ABD PAIN, STATES PAIN DID IMPROVE AFTER GI COCKTAIL, BUT IS NOW RETURNED AND MOVED TO [facility]. AWAKE ALERT SKIN W/D RESP NONLAB. NAD NOTED.
--- NOTE | 2018-12-19 23:16 | Diagnostic Imaging Report ---
EXAM: Abdomen 1 View INDICATION: Nausea vomiting COMPARISON: None FINDINGS: No disproportionate dilation of small bowel loops. Gas within loops of large and small bowel. No renal calculi. No abnormal soft tissue masses. No pneumoperitoneum. No mass effect. No obvious ascites. Cholecystectomy clips in the right upper quadrant. Sutures in the left upper abdomen possibly related to prior gastric surgery. Lung bases clear. Mild degenerative changes in the spine. IMPRESSION: Nonspecific bowel gas pattern. Gas-filled loops of large and small bowel without overt dilation although early obstruction is possible. Also there appears to be postsurgical changes from prior gastric surgery. Signed by: Michael Gutierrez DO on 12/19/2018 11:13 PM
--- NOTE | 2018-12-19 23:44 | NUR ---
pt states she does not feel like she can drink anything. water given for PO challenge. awake alert skin w/d resp nonlab. nad noted.
[2018-12-20] MEDS ORDERED: SODIUM CHLORIDE 0.9% 1000ML 1,000 ML IV STA (00:08)
[2018-12-20] MEDS ORDERED: LEVOTHYROXINE88 MCG PO (00:15)
[2018-12-20] MEDS ORDERED: PROMETHAZINE HCL (IM) 25 MG/ML VIAL IV PRN (00:15)
[2018-12-20] MEDS ORDERED: DIPHENHYDRAMINE HCL INJ 50 MG/ML VIAL IV PRN (00:15)
[2018-12-20] MEDS ORDERED: IRON325 M1 PO (00:15)
[2018-12-20] MEDS ORDERED: ZOLPIDEM TARTRATE 5 MG TAB PO PRN (00:15)
[2018-12-20] MEDS ORDERED: ONDANSETRON HCL8 MG PO (00:15)
[2018-12-20] MEDS ORDERED: VITAMIN D250000 UNIT PO (00:15)
[2018-12-20] MEDS ORDERED: VENLAFAXINE H37.5 M1 PO (00:15)
--- OUTSIDE RECORDS SUMMARY | 2018-12-20 00:27 | XMS REPORT | Continuity of Care Document ---
Author Author [employer] Organization [employer] Address Unknown Phone Unavailable Care Team Providers Care [employer] Name Role Phone [facility] [email or web address] Information [employer] Unavailable Unavailable Problems Problem Status Onset Date Classification Date Reported Comments Source PAIN IN KNEE-M25.569 STAT OK TO A Active 08/19/2015 [facility] 723.1 - CERVICALGIA Active 10/29/2014 [facility] [place] Discharge Diagnosis: Neck pain 09/30/2014 10/03/2014 [facility] Discharge Diagnosis: Headache 09/30/2014 10/03/2014 [facility] Discharge Diagnosis: Muscle strain 09/30/2014 10/03/2014 [facility] NECK PAIN Active 09/30/2014 [facility] Abdominal pain Active Problem 08/22/2015 [facility] Anemia Active Problem 08/22/2015 [facility] Gallbladder pain Resolved Problem 08/22/2015 [facility] Laparoscopic cholecystectomy Active Problem 08/22/2015 [facility] Thyroid disease1 Active Problem 08/22/2015 on meds [facility] Tonsillitis Resolved Problem 08/22/2015 [facility] Medications Medication Details Route Status Patient Instructions Ordering Provider Order Date Source Cyclobenzaprine hydrochloride 10 MG Oral Tablet [Flexeril] 10 mg, PO, TID, PRN Muscle Spasm, X 10 day, # 30 tab, 0 Refill(s) Active 09/30/2014 [facility] Benadryl 12.5 mg, 0.25 mL, Route: IVP, Drug form: INJ, ONCE, Dosing Weight 156.818, kg, Priority: STAT, Start date: 09/30/14 12:15:00, Stop date: 09/30/14 12:15:00Notes: (Same as: Benadryl) Inactive 09/30/2014 [facility] ketOROLAC 30 mg/mL injectable solution 30 [...] mg Product Wasted: ___ mg Inactive 09/30/2014 [facility] Reglan 10 mg, 2 mL, Route: IVP, Drug form: INJ, ONCE, Dosing Weight 156.818, kg, Priority: STAT, Start date: 09/30/14 12:15:00, Stop date: 09/30/14 12:15:00Notes: (Same as: Reglan) Inactive 09/30/2014 [facility] Flexeril 10 mg, Route: PO, ONCE, Dosing Weight 156.818, kg, Priority: STAT, Start date: 09/30/14 11:18:00, Stop date: 09/30/14 11:18:00 Inactive 09/30/2014 [facility] Acetaminophen 325 MG / Hydrocodone Bitartrate 10 MG Oral Tablet [Jenison 10/325] 1 tab, Route: PO, Dosing Weight 156.818, kg, ONCE, Start date: 09/30/14 11:18:00, Stop date: 09/30/14 11:18:00 Inactive 09/30/2014 [facility] Allergies, Adverse Reactions, Alerts Substance Category Reaction Severity Reaction type Status Date Reported Comments Source Ceclor Assertion Drug allergy Active [facility] Immunizations No Data Provided for This Section Results Order Name Results Value Reference Range Date Interpretation Comments Source CHEM PANEL Globulin 3.4 2.0 - 4.0 09/30/2014 [facility] CHEM PANEL A/G Ratio 1.1 0.7 - 1.6 09/30/2014 [facility] CHEM PANEL B/C Ratio 21 6 - 25 09/30/2014 [facility] CHEM PANEL AGAP 7.8 10.0 - 20.0 09/30/2014 [facility] CHEM PANEL Albumin Lvl 3.6 3.5 - 5.0 09/30/2014 [facility] CHEM PANEL ALT 22 0 - 65 09/30/2014 [facility] CHEM PANEL Glucose Lvl 86 70 - 99 09/30/2014 <sup>2</sup>Interpretive Data: Adult reference range values reflect the clinical guidelines
of the [place] [employer]. [facility] CHEM PANEL AST 15 0 - 37 09/30/2014 [facility] CHEM PANEL Alk Phos 63 39 - 136 09/30/2014 [facility] CHEM PANEL Bili Total 0.6 0.2 - 1.3 09/30/2014 [facility] CHEM PANEL CO2 29 24 - 32 09/30/2014 [facility] CHEM PANEL BUN 17 7 - 22 09/30/2014 [facility] CHEM PANEL Total Protein 7.0 6.4 - 8.4 09/30/2014 [facility] CHEM PANEL eGFR 101 09/30/2014 <sup>1</sup>Result [...] should be multiplied by the estimated BMI. [facility] CHEM PANEL Potassium Lvl 3.8 3.5 - 5.1 09/30/2014 [facility] CHEM PANEL Sodium Lvl 140 135 - 145 09/30/2014 [facility] CHEM PANEL Creatinine Lvl 0.8 0.5 - 1.4 09/30/2014 [facility] CHEM PANEL Calcium Lvl 8.2 8.5 - 10.5 09/30/2014 [facility] CHEM PANEL Chloride Lvl 107 95 - 109 09/30/2014 [facility] HEMATOLOGY Segs-Bands # 5.2 1.5 - 8.1 09/30/2014 [facility] HEMATOLOGY Lymphocytes # 2.2 1.0 - 5.5 09/30/2014 [facility] HEMATOLOGY Monocytes # 0.4 0.0 - 0.8 09/30/2014 [facility] HEMATOLOGY Eosinophils # 0.4 0.0 - 0.5 09/30/2014 [facility] HEMATOLOGY Basophils # 0.1 0.0 - 0.2 09/30/2014 [facility] HEMATOLOGY Basophils 1.1 0.0 - 1.0 09/30/2014 [facility] HEMATOLOGY Eosinophils 4.5 0.0 - 4.0 09/30/2014 [facility] Monocytes 4.7 2.0 - 12.0 09/30/2014 [facility] Lymphocytes 26.5 20.0 - 40.0 09/30/2014 [facility] Segs 63.2 45.0 - 75.0 09/30/2014 [facility] MCHC 33.1 32.0 - 36.0 09/30/2014 [facility] RDW 14.5 11.5 - 14.5 09/30/2014 [facility] MCH 27.6 27.0 - 31.0 09/30/2014 [facility] MCV 83.5 80.0 - 98.0 09/30/2014 [facility] Platelet 305 133 - 450 09/30/2014 [facility] MPV 7.8 7.4 - 10.4 09/30/2014 [facility] RBC 4.41 4.20 - 5.40 09/30/2014 [facility] Hgb 12.2 12.0 - 16.0 09/30/2014 [facility] WBC 8.2 3.7 - 10.4 09/30/2014 [facility] Hct 36.9 36.0 - 48.0 09/30/2014 [facility] Pathology Reports No Data Provided for [...] contusion. 19. Moderate joint effusion. IMPRESSION: 1. Wazl-dv-hvhmevsl medial collateral ligament sprain. 2. Prominent intraligamentous fluid throughout the ACL with degenerative subcortical osseous cystic change in the tibia at the ACL attachment compatible with degenerative intraligamentous ganglion cyst. 3. Multiple findings associated with lateral patellar tracking/lateral patellofemoral impingement with chronic-appearing partial tear of the MPFL at the patellar attachment. 4. Moderate joint effusion. Thank you for referring your patient to [facility] and [facility]. SL: [id number] 08/19/2015 [facility] Consultation Notes No Data Provided for This Section Discharge Summaries No Data Provided for This Section History and Physicals No Data Provided for This Section Vital Signs Vital Sign Value Date Comments Source Height 165.1 cm 09/30/2014 [facility] BMI Calculated 57.53 09/30/2014 [facility] Weight 156.818 09/30/2014 [facility] Respitory Rate 20 09/30/2014 [facility] Heart Rate 71 09/30/2014 [facility] Temperature Oral (F) 98.2 F 09/30/2014 [facility] Systolic (mm Hg) 139 09/30/2014 [facility] Diastolic (mm Hg) 86 09/30/2014 [facility] Encounters Location Location Details Encounter Type Encounter Number Reason For Visit Attending Provider ADM Date DC Date Status Source [facility] [id number] Marin Chang 09/30/2014 09/30/2014 [facility] [id number] Maximiliano Escalante 08/19/2015 08/20/2015 [facility] Outpatient [id number] VINCENZO SANDY 04/04/2017 [facility] [id number] LINUS MATAMOROS 04/10/2017 Active [facility] [id number] LINUS MATAMOROS 04/25/2017 [facility] [id number] VINCENZO SENAH 05/02/2017 Active [facility] [id number] VINCENZO SANDY 05/11/2017 Active [facility] [id number] JUAN A ESTILL 05/26/2017 Active [facility] [id number] VINCENZO SENAH 06/27/2017 Active [facility] [id number] VINCENZO SANDY 07/11/2017 Active [facility] [id number] LINUS MATAMOROS 07/17/2017 Active [facility] [id number] LINUS MATAMOROS 08/01/2017 Active [facility] [id number] VINCENZO SANDY 08/08/2017 Active [facility] [id number] LINUS MATAMOROS 08/30/2017 Active [facility] [id number] LINUS MATAMOROS 09/07/2017 Active [facility] [id number] LINUS MATAMOROS 09/18/2017 Active [facility] [id number] VINCENZO [facility] 09/19/2017 Active [facility] [id number] VINCENZO SANDY 10/27/2017 Active [facility] [id number] JUAN A ESTILL 11/10/2017 Active [facility] [id number] JUAN A ESTILL 12/07/2017 Active [facility] [id number] JUAN A ESTILL 12/21/2017 Active [facility] [id number] VINCENZO SENAH 01/09/2018 Active [facility] [id number] VINCENZO SANDY 02/13/2018 Active [facility] [id number] LINUS MATAMOROS 02/28/2018 Active [facility] [id number] LINUS MATAMOROS 03/12/2018 Active [facility] [id number] LINUS MATAMOROS 04/09/2018 Active [facility] [id number] LINUS MATAMOROS 07/09/2018 Active [facility] [id number] LINUS MATAMOROS 08/06/2018 Active [facility] Outpatient [id number] VINCENZO [facility] 08/07/2018 Active [facility] [id number] LINUS MATAMOROS 08/16/2018 Active [facility] Outpatient [id number] Vincenzo [facility] 01/01/2019 [facility] Procedures Procedure Code Date Perfomer Comments Source Cholecystectomy [id number] [facility] Neck procedure [id number] [facility] Tonsillectomy [id number] [facility] Assessment and Plan No Data Provided for This Section Plan of Care No Data Provided for This Section Social History Social History Date Source Social History TypeResponse Smoking Status Never smoker; Ready to change: No; Concerns about tobacco use in household: No; Exposure to Tobacco Smoke None; Cigarette Smoking Last 365 Days No; Reg Smoking Cessation Counseling No 09/30/2014 [facility] Family History No Data Provided for This Section Advance Directives No Data Provided for This Section Functional Status No Data Provided for This Section
[2018-12-20] MEDS ORDERED: CETIRIZINE HCL10 MG PO (00:32)
[2018-12-20] MEDS ORDERED: METHOTREXATE2.5 MG PO (00:32)
[2018-12-20] MEDS ORDERED: GABAPENTIN600 MG PO (00:32)
[2018-12-20] MEDS ORDERED: ENBREL50 MG/1 M1 SC (00:32)
[2018-12-20] MEDS ORDERED: FLUTICASONE PRO16 GM (00:32)
[2018-12-20] MEDS ORDERED: MONTELUKAST SOD10 MG PO (00:32)
[2018-12-20] MEDS ORDERED: TOPIRAMATE50 MG PO (00:32)
[2018-12-20] MEDS ORDERED: METFORMIN HCL1000 MG PO (00:32)
[2018-12-20] MEDS ORDERED: IOPAMIDOL 370 MG/ML 200 ML INFUS..BTL INJ ONE (01:28)
[2018-12-20] MEDS ORDERED: SODIUM CHLORIDE 0.9% 50ML 50 ML ONE (01:28)
--- NOTE | 2018-12-20 02:46 | Diagnostic Imaging Report ---
EXAM: CT Abdomen and Pelvis WITH contrast INDICATION: Abdominal pain COMPARISON: None. TECHNIQUE: Abdomen and pelvis were scanned utilizing a multidetector helical scanner from the lung base to the pubic symphysis after administration of IV contrast. Coronal and sagittal reformations were obtained. Routine protocol was performed. Scan was performed when during portal venous phase. IV CONTRAST: 100 mL of Isovue 370 ORAL CONTRAST: None COMPLICATIONS: None RADIATION DOSE: Total DLP: 826 mGy*cm Estimated effective dose: (DLP x 0.015 x size factor) mSv CTDIvol has been reviewed. It is below the limits set by the Radiation Protocol Committee (RPC). Dose modulation, iterative reconstruction, and/or weight based adjustment of the mA/kV was utilized to reduce the radiation dose to as low as reasonably achievable. FINDINGS: LINES and TUBES: None. LOWER THORAX: Unremarkable HEPATOBILIARY: No focal hepatic lesions. No biliary ductal dilation. GALLBLADDER: There are cholecystectomy clips. SPLEEN: No splenomegaly. PANCREAS: No focal masses or ductal dilatation. ADRENALS: No adrenal nodules KIDNEYS/URETERS: Kidneys enhance symmetrically. No hydronephrosis. No cystic or solid mass lesions. No stones. GI TRACT: No abnormal distention, wall thickening, or evidence of bowel obstruction. Surgical changes of partial gastrectomy. Appendix is normal. PELVIC ORGANS/BLADDER: Unremarkable. LYMPH NODES: No lymphadenopathy. VESSELS: Unremarkable. PERITONEUM / RETROPERITONEUM: No free air or fluid. BONES: Unremarkable. SOFT TISSUES: Unremarkable. IMPRESSION: No acute intra-abdominal abnormalities. Surgical changes of partial gastrectomy without complication. Signed by: Michael Gutierrez DO on 12/20/2018 2:42 AM
[2018-12-20] MEDS: ONDANSETRON HCL INJ 2MG/ML 2ML 2 MG/ML VIAL IV PRN ×2 (02:54→07:51)
--- NOTE | 2018-12-20 02:58 | NUR ---
PT REPORTS NAUSEA INCREASED. PLACED ON HOSPITAL BED, AMBULATED TO RESTROOM. IV BOLUS STARTED. MEDICATED WITH ZOFRAN PER ORDERS.
[2018-12-20] MEDS: SODIUM CHLORIDE 0.9% 1000ML 1,000 ML IV SCH ×4 (03:52→23:12)
[2018-12-20 06:06] LABS: BASOPHILS # (AUTO) 0.1 (0.0-0.1); EOSINOPHILS # (AUTO) 0.3 (0.0-0.4); EOSINOPHILS % 4.5 % (0.0-6.0); HEMATOCRIT 32.7 % (34.2-44.1); HEMOGLOBIN 10.2 g/dL (12.0-16.0); LYMPHOCYTES # (AUTO) 1.6 (1.0-3.2); LYMPHOCYTES % 26.8 % (18.0-39.1); MEAN CORPUSCULAR HEMOGLOBIN 26.2 pg (28-32); MEAN CORPUSCULAR HGB CONC 31.2 g/dL (31-35); MEAN CORPUSCULAR VOLUME 84.1 fL (81-99); MONOCYTES # (AUTO) 0.4 (0.2-0.8); MONOCYTES % 6.2 % (4.4-11.3); NEUTROPHILS # (AUTO) 3.6 (2.1-6.9); NEUTROPHILS % 61.2 % (38.7-80.0); PLATELET COUNT 245 x10e3/uL (140-360); RED BLOOD COUNT 3.89 x10e6/uL (3.6-5.1); RED CELL DISTRIBUTION WIDTH 17.7 % (11.7-14.4)
[2018-12-20 06:25] LABS: ANION GAP 12.6 mmol/L (8-16); BLOOD UREA NITROGEN 9 mg/dL (7-26); BUN/CREATININE RATIO 13 (6-25); CALCIUM 8.1 mg/dL (8.4-10.2); CARBON DIOXIDE 21 mmol/L (22-29); CHLORIDE 109 mmol/L (98-107); CREATININE, SERUM 0.68 mg/dL (0.57-1.11); EST GLOMERULAR FILTRATION RATE > 60 ML/MIN (60-); GLUCOSE 112 mg/dL (74-118); POTASSIUM 3.6 mmol/L (3.5-5.1); SODIUM 139 mmol/L (136-145)
--- NOTE | 2018-12-20 06:54 | NUR ---
report to Micki
[2018-12-20] MEDS: MORPHINE SULFATE 2 MG/ML SYR 1ML IV PRN ×3 (07:51→15:12)
[2018-12-20] MEDS: FAMOTIDINE 20 MG/2 ML VIAL IV SCH ×2 (07:51→15:50)
[2018-12-20] MEDS: BELLADONNA ALK/PHENOBARBITAL 5 ML UDC PO SCH ×3 (08:01→20:27)
[2018-12-20 08:25] VITALS: BP 102/65
--- NOTE | 2018-12-20 08:38 | NUR ---
SITTING UP SMILING AND PLEASANT.VSS. ADMISSION INFO BEING DONE BY Roseline PT [email or web address]. CONTINUE TO MONITOR
[2018-12-20 08:55] VITALS: BP 102/65
[2018-12-20] MEDS ORDERED: PNEUMOCOCCAL VACCINE POLYVALENT 23 MCG/0.5 ML VIAL IM ONE (10:00)
[2018-12-20 14:28] VITALS: BP 122/82
[2018-12-20] MEDS: PROMETHAZINE 25MG/SOD CHL 0.9% 50 ML IV PRN (19:32)
[2018-12-20 20:00] VITALS: BP 115/68
[2018-12-20] MEDS: METOCLOPRAMIDE HCL 10 MG/2ML VIAL IV SCH (20:27)
[2018-12-20] MEDS: MONTELUKAST SODIUM 10 MG TAB PO SCH (20:27)
[2018-12-20] MEDS: SUCRALFATE 1 GM TAB PO SCH (20:27)
--- NOTE | 2018-12-20 21:52 | Consultation ---
DATE OF CONSULTATION: 12/20/2018 HISTORY OF PRESENT ILLNESS: The patient is a 33-year-old female, history of previous gastric sleeve resection, who presents with complaints of epigastric abdominal pain with associated nausea and vomiting. The patient says she has had a left costal margin left upper quadrant abdominal pain for quite some time. She had back surgery and this seemed to improve, but then the pain recurred about a month ago and then she developed nausea over the last few days. She says she is passing some flatus. CT scan of the abdomen and pelvis was done, which did not reveal any findings suggestive of obstruction, the only changes being from her gastrectomy. The patient also has had previous cholecystectomy. PAST MEDICAL HISTORY: Significant for her previous gastric sleeve resection as well as cholecystectomy. She has a history of asthma, hypothyroidism. ALLERGIES: SHE HAS ALLERGY TO CEFACLOR. MEDICATIONS: At home were cetirizine, vitamin D, Enbrel, iron, fluticasone, gabapentin, levothyroxine, metformin, methotrexate, montelukast, ondansetron, and topiramate. FAMILY HISTORY: Noncontributory. SOCIAL HISTORY: The patient does not smoke cigarettes or drink alcohol. REVIEW OF SYSTEMS: As stated above. She has had no fever, no weight loss. PHYSICAL EXAMINATION: GENERAL: The patient is awake and alert, in no distress. VITAL SIGNS: Normal. She is not tachycardic. She is afebrile. HEENT: Unremarkable. Sclerae are not icteric. NECK: Supple. No masses. LUNGS: Equal breath sounds are clear bilaterally. CARDIAC: Regular rate and rhythm. Normal S1 and S2 without murmur, S3, S4. There is no jugular venous distention. ABDOMEN: Soft. There is slight left upper quadrant tenderness. There is no distention. No mass. No organomegaly. EXTREMITIES: Have no edema. NEUROLOGIC: Grossly intact. ASSESSMENT: This is a 33-year-old female with abdominal pain, nausea and vomiting, though no findings on x-ray that suggest obstruction. This may be some acute gastritis, possibly abnormality of the stomach related to her gastric sleeve resection. PLAN: Consult with Gastroenterology for possible upper GI endoscopy. There is no sign of acute surgical abdomen. No findings that warrant immediate surgical intervention. Thank you for asking me to see Ms. Doherty. Sanjeev W MD RUDDY Jacques/GENE /[id number]
[2018-12-20 22:26] VITALS: BP 115/68
[2018-12-21] VITALS (7 sets, daily range): BP systolic 104–121; BP diastolic 70–79
--- NOTE | 2018-12-21 01:33 | Consultation ---
DATE OF CONSULTATION: 12/20/2018 HISTORY OF PRESENT ILLNESS: This is a 33 years old, who has a history of gastric bariatric surgery, presented to the hospital because of abdominal pain along with some nausea and vomiting, described as cramping in nature. The patient denies any bleeding along with this problem. The patient does have some loose stool along with the problem. Her workup on admission, CBC was okay. Hemoglobin today dropped to 10.2 with hydration and then the CMP was normal. She did have x-rays of the abdomen on admission, which initially shows possible early obstructions; however, the CAT scan of the abdomen and pelvis that was done this morning was negative. PAST MEDICAL HISTORY: Significant for history of diabetes, history of hypothyroidism, history of anemia, COPD, history of reflux, previous cholecystectomy, and gastric sleeve surgery x2. ALLERGIES: NONE. SOCIAL HISTORY: No alcohol use. FAMILY HISTORY: Noncontributory. REVIEW OF SYSTEMS: Denies any chest pain or shortness of breath. Denies any dysphagia or odynophagia. Denies any dysuria, hematuria, or any kind of syncopal episode. MEDICATIONS: She is on Pepcid, , and Zofran. PHYSICAL EXAMINATION: GENERAL: The patient is awake and alert, appears to be stable, not in acute distress at this point. VITAL SIGNS: Afebrile currently with stable vital signs. HEAD, EYES, EARS, NOSE, AND THROAT: Normocephalic and atraumatic. Sclerae are anicteric. NECK: Supple. HEART: Regular. LUNGS: Clear. ABDOMEN: Soft. There is some tenderness in the epigastric area. There is no rebound or mass. EXTREMITIES: No cyanosis. No clubbing. LAB VALUES: Today, BMP is normal. WBC of 5.83, hemoglobin 10.2. CAT scan of the abdomen and pelvis was unremarkable. IMPRESSION: 1. Abdominal pain, nausea and vomiting, etiology is unclear at this point. It is getting better. Initial x-ray showed possible obstruction, but CAT scan was negative. 2. History of diabetes. 3. History of gastric sleeve x2. RECOMMENDATION: Continue current care at this point. I will add Carafate to the regimen. Advance diet slowly. We will consider upper endoscopy if the patient has continued to have a problem. MD TONO Lara/GRISELL /[id number] cc: Sushila Garcia MD
--- NOTE | 2018-12-21 03:48 | History and Physical ---
CHIEF COMPLAINT: Abdominal pain, nausea, vomiting. HISTORY OF PRESENT ILLNESS: A 33-year-old female with known history of a gastric sleeve in the past, who also has a history of type 2 diabetes, morbidly obese, rheumatoid arthritis, ankylosing spondylitis, who comes into the ED with complaints of nausea, vomiting, abdominal pain ongoing since Monday of this week. The patient reports that on Monday suddenly she began to have acute abdominal pain and unable to keep any food down. She states that anytime she would drink any water she would vomit. Also reports significant dehydration as well as decreased urine output. She denies any chest pain, palpitation, nausea or vomiting. She endorses that her gastric sleeve was back in 2015. She reports taking multivitamin and thiamine at that time for the 1st one year, after that she was told just to eat and drink whenever she needed and did not need to be on any multivitamins. The patient was evaluated at bedside. She is currently doing well with no other issues. She does look clinically dehydrated on examination. REVIEW OF SYSTEMS: Pertinent positives: Abdominal pain, nausea, vomiting, and dehydration. Pertinent negative: Denies any chest pain, palpitation, dysuria, hematuria, frequency, urgency, lightheadedness, dizziness, headaches, shortness of breath, cough, congestion, fever, or any other complaints. The rest of 14-point review of systems are reviewed with the patient and are negative. ALLERGIES: CEFACLOR. HOME MEDICATIONS: Ergocalciferol 50,000 units weekly, iron tablets 325 mg daily, fluticasone nasal spray daily, methotrexate 15 mg weekly, 50 mg subcu weekly, metformin 1000 mg p.o. b.i.d., gabapentin 600 mg p.o. b.i.d., levothyroxine 88 mcg daily, Singulair 10 mg daily, and topiramate 50 mg daily. PAST MEDICAL HISTORY: She has gastric sleeve in the past, morbid obesity, hypothyroidism, peripheral neuropathy, type 2 diabetes, psoriatic arthritis, rheumatoid arthritis and iron-deficiency anemia. PAST SURGICAL HISTORY: She said she had back surgery in the past, but could not elaborate more. FAMILY HISTORY: Hypertension and diabetes. SOCIAL HISTORY: No drugs. No alcohol. Does not smoke. Good social support. PHYSICAL EXAMINATION: VITAL SIGNS: Temperature is 97.3, pulse 60, respiratory rate 20, blood pressure 122/82, pulse ox 100% on room air. GENERAL: Not in acute distress, alert and oriented x3. Cooperative on examination. HEENT: Head is normocephalic and atraumatic. Eyes; pupils are equal, round, and reactive to bilaterally. Extraocular movements are intact bilaterally. NECK: Supple. Good range of motion. Throat, no evidence of erythema or exudates in the posterior pharynx. Has poor dentition. PULMONARY: Clear to auscultation bilaterally. No wheezing, no rales, no rhonchi, no crackles appreciated. CARDIOVASCULAR: Positive S1, S2. No murmurs, rubs, or gallops appreciated. ABDOMEN: Soft, nondistended, and nontender to palpation. Bowel sounds present. MUSCULOSKELETAL: Strength is 5/5 throughout. No evidence of any muscles deficits on examination. No weakness appreciated. NEUROLOGICAL: Cranial nerves II through XII grossly intact. No evidence of any neurological deficits on exam. SKIN: Intact. Warm to touch. Good cap refill. PSYCHIATRIC: Normal affect and mood. EXTREMITIES: No edema. Good range of motion throughout. LAB FINDINGS: Show white count of 5.8, hemoglobin 10.2, hematocrit 32.7, platelets of 245. Chemistry, sodium 139, potassium 3.6, chloride 109, bicarb 21, anion gap of 12, BUN 9, creatinine 0.68, glucose is 112, calcium is 8.1, total bilirubin is 2.4, AST 18, ALT 16, alkaline phosphatase 56, total protein 7.2, albumin 4.3, lipase 25. Urinalysis seems to be negative. MICROBIOLOGY: None. IMAGING STUDIES: Abdominal x-ray shows nonspecific bowel gas pattern. Gas-filled loops of large and small bowel without overall dilatation although early obstruction . There is some postsurgical changes due to prior gastric surgery. CT abdomen and pelvis shows no acute intraabdominal abnormalities gastrectomy without complications. IMPRESSION: 1. Abdominal pain with associated nausea, vomiting and dehydration. 2. History of gastric sleeve. 3. History of gastritis with peptic ulcer disease. 4. History of rheumatoid arthritis with history of ankylosing spondylitis. 5. Hypothyroidism. PLAN: At this time, she is on a clear liquid diet, IV fluids, pain control. she may have underlying gastroparesis, we can resume same home medications. Put her on Carafate and Protonix. General Surgery and GI were consulted. She may end up getting an EGD to be further evaluated as well. Otherwise, patient is put on IV fluids. Resume same home medications. Put on Lovenox for DVT prophylaxis. MD JONNY Holt/GENE /[id number]
[2018-12-21] MEDS: METOCLOPRAMIDE HCL 10 MG/2ML VIAL IV SCH ×3 (05:21→21:46)
[2018-12-21] MEDS: LEVOTHYROXINE SODIUM 88 MCG TAB PO SCH (05:22)
[2018-12-21 05:26] LABS: BASOPHILS # (AUTO) 0.1 (0.0-0.1); EOSINOPHILS # (AUTO) 0.2 (0.0-0.4); EOSINOPHILS % 4.6 % (0.0-6.0); HEMOGLOBIN 10.2 g/dL (12.0-16.0); LYMPHOCYTES # (AUTO) 1.3 (1.0-3.2); LYMPHOCYTES % 24.3 % (18.0-39.1); MEAN CORPUSCULAR HEMOGLOBIN 26.4 pg (28-32); MEAN CORPUSCULAR HGB CONC 30.9 g/dL (31-35); MEAN CORPUSCULAR VOLUME 85.5 fL (81-99); MONOCYTES # (AUTO) 0.3 (0.2-0.8); MONOCYTES % 6.3 % (4.4-11.3); NEUTROPHILS # (AUTO) 3.3 (2.1-6.9); NEUTROPHILS % 63.6 % (38.7-80.0); PLATELET COUNT 241 x10e3/uL (140-360); RED BLOOD COUNT 3.86 x10e6/uL (3.6-5.1); RED CELL DISTRIBUTION WIDTH 17.5 % (11.7-14.4)
[2018-12-21 05:46] LABS: ALANINE AMINOTRANSFERASE 12 IU/L (0-55); ALBUMIN 3.4 g/dL (3.5-5.0); ALBUMIN/GLOBULIN RATIO 1.6 (0.8-2.0); ALKALINE PHOSPHATASE 42 IU/L (40-150); ANION GAP 11.4 mmol/L (8-16); BLOOD UREA NITROGEN 5 mg/dL (7-26); BUN/CREATININE RATIO 7 (6-25); CALCIUM 8.4 mg/dL (8.4-10.2); CARBON DIOXIDE 23 mmol/L (22-29); CHLORIDE 108 mmol/L (98-107); CREATININE, SERUM 0.73 mg/dL (0.57-1.11); EST GLOMERULAR FILTRATION RATE > 60 ML/MIN (60-); GLUCOSE 108 mg/dL (74-118); POTASSIUM 3.4 mmol/L (3.5-5.1); SODIUM 139 mmol/L (136-145)
[2018-12-21] MEDS: SODIUM CHLORIDE 0.9% 1000ML 1,000 ML IV SCH ×2 (05:51→16:08)
[2018-12-21] MEDS: TOPIRAMATE 25 MG TAB PO SCH (08:41)
[2018-12-21] MEDS: SUCRALFATE 1 GM TAB PO SCH ×4 (08:41→21:46)
[2018-12-21] MEDS: BELLADONNA ALK/PHENOBARBITAL 5 ML UDC PO SCH ×3 (08:41→21:46)
[2018-12-21] MEDS: FAMOTIDINE 20 MG/2 ML VIAL IV SCH ×2 (08:41→17:25)
[2018-12-21] MEDS: MULTIVITAMINS/MINERALS TAB PO SCH (08:41)
[2018-12-21] MEDS: GABAPENTIN 300 MG CAP PO SCH ×2 (08:41→17:25)
[2018-12-21] MEDS ORDERED: NON-FORMULARY MEDICATION (Gabapentin 600 MG) PO SCH (09:00)
[2018-12-21] MEDS ORDERED: NON-FORMULARY MEDICATION (Topiramate 50 MG) PO SCH (09:00)
[2018-12-21] MEDS: MORPHINE SULFATE 2 MG/ML SYR 1ML IV PRN ×2 (14:05→19:38)
--- NOTE | 2018-12-21 16:56 | NUR ---
spoke to DR Mendez , he stated keep the patient on banana bag and NPO after midnight on monday .and he will come n see the patient
[2018-12-21] MEDS: MULTIVITAMINS- 12 INJECTION 10 ML, FOLIC ACID MDV 5 MG, THIAMINE HCL INJ 100 MG in SODI... IV SCH (17:25)
[2018-12-21] MEDS ORDERED: POTASSIUM CHLORIDE 20 MEQ TAB CR PO ONE (17:45)
--- NOTE | 2018-12-21 19:08 | NUR ---
received report from day nurse. patient is resting comfortably in the bed. bed is in lowest position and call blunt is within reach. will continue to monitor patient.
[2018-12-21] MEDS: ONDANSETRON HCL INJ 2MG/ML 2ML 2 MG/ML VIAL IV PRN (19:39)
--- NOTE | 2018-12-21 19:50 | Progress Note ---
DATE: 12/21/2018 Medicine Progress Note SUBJECTIVE: The patient is eating clear liquid diet. She is able to keep it down, but still complains of nausea. No overnight events. GI was consulted to evaluate her. I thought she was going to have an EGD today, but did not. PHYSICAL EXAMINATION: VITAL SIGNS: Temperature is 96.9, pulse 59, respiratory rate is 18, blood pressure 116/78, and pulse ox is 97% on room air. GENERAL: Not in acute distress. Alert and oriented x3. Cooperative on examination. HEENT: Head is normocephalic and atraumatic. Eyes; pupils are equal, round, and reactive to light bilaterally. Extraocular movements are intact. Throat; no evidence of erythema or exudates in the posterior pharynx. Has poor dentition. NECK: Supple. Good range of motion. PULMONARY: Clear to auscultation bilaterally. No wheezing, no rhonchi, and no crackles appreciated. CARDIOVASCULAR: Positive S1 and S2. No murmurs, rubs, or gallops appreciated. ABDOMEN: Soft, nondistended, and nontender to palpation. Bowel sounds present. MUSCULOSKELETAL: Strength is 5/5 throughout. No evidence of any muscle deficits on examination. NEUROLOGIC: Cranial nerve II through XII grossly intact. No evidence of any neurological deficits on exam. SKIN: Intact. Warm to touch. Good cap refill. PSYCHIATRIC: Normal affect and mood. EXTREMITIES: No edema. Good range of motion throughout. LABORATORY FINDINGS: Show white count 5.2, hemoglobin 10.2, hematocrit 33, and platelets of 241. Chemistry; sodium 139, potassium 3.4, chloride 108, bicarbonate 23, anion gap of 11, BUN is 5, creatinine is 0.73, glucose 108, and calcium 8.4. LFTs within normal range. Lipase is 25. Microbiology, none. IMAGING STUDIES: None. IMPRESSION: 1. Abdominal pain with associated nausea, vomiting, and dehydration. 2. History of gastric sleeve. 3. History of gastritis with peptic ulcer disease. 4. History of rheumatoid arthritis with history of ankylosing spondylitis. 5. Hypothyroidism. PLAN: At this time, she is still on clear liquid diet. She is able to tolerate it, but no vomiting. She does still have nausea. She is on IV fluids, pain control. I did have her on scheduled Reglan as well. Continue with care. Protonix. GI is following closely. I will go ahead and get a bariatric surgeon involved as well as she had her gastric sleeve performed back in 2014, which may need to be further evaluated. Consult has been placed. Discussed with nursing staff. Lovenox for DVT prophylaxis. Get a.m. labs. Replace potassium. MD JONNY Holt/GENE /[id number]
[2018-12-21] MEDS: MONTELUKAST SODIUM 10 MG TAB PO SCH (21:46)
[2018-12-22] VITALS (7 sets, daily range): BP systolic 110–138; BP diastolic 73–87
[2018-12-22] MEDS: ONDANSETRON HCL INJ 2MG/ML 2ML 2 MG/ML VIAL IV PRN (04:18)
[2018-12-22] MEDS: LEVOTHYROXINE SODIUM 88 MCG TAB PO SCH (05:46)
[2018-12-22] MEDS: METOCLOPRAMIDE HCL 10 MG/2ML VIAL IV SCH ×3 (05:46→21:23)
[2018-12-22 06:08] LABS: ANION GAP 12.7 mmol/L (8-16); BLOOD UREA NITROGEN < 5 mg/dL (7-26); CALCIUM 8.4 mg/dL (8.4-10.2); CARBON DIOXIDE 22 mmol/L (22-29); CHLORIDE 108 mmol/L (98-107); CREATININE, SERUM 0.72 mg/dL (0.57-1.11); EST GLOMERULAR FILTRATION RATE > 60 ML/MIN (60-); GLUCOSE 105 mg/dL (74-118); POTASSIUM 3.7 mmol/L (3.5-5.1); SODIUM 139 mmol/L (136-145)
--- NOTE | 2018-12-22 06:40 | NUR ---
report given to day nurse. patient is resting comfortably in bed. bed is in lowest position and call blunt is within reach.
[2018-12-22 06:44] LABS: BUN/CREATININE RATIO 7 (6-25)
[2018-12-22] MEDS ORDERED: ACETAMINOPHEN 325 MG TAB PO PRN (07:30)
[2018-12-22] MEDS: SUCRALFATE 1 GM TAB PO SCH ×4 (07:34→21:23)
[2018-12-22] MEDS: GABAPENTIN 300 MG CAP PO SCH ×2 (08:03→17:12)
[2018-12-22] MEDS: FAMOTIDINE 20 MG/2 ML VIAL IV SCH ×2 (08:03→17:12)
[2018-12-22] MEDS: MULTIVITAMINS/MINERALS TAB PO SCH (08:03)
[2018-12-22] MEDS: TOPIRAMATE 25 MG TAB PO SCH (08:03)
[2018-12-22] MEDS: BELLADONNA ALK/PHENOBARBITAL 5 ML UDC PO SCH ×3 (09:00→21:23)
[2018-12-22] MEDS: PROMETHAZINE 25MG/SOD CHL 0.9% 50 ML IV PRN (13:38)
[2018-12-22] MEDS: MORPHINE SULFATE 2 MG/ML SYR 1ML IV PRN (13:39)
[2018-12-22] MEDS: MULTIVITAMINS- 12 INJECTION 10 ML, FOLIC ACID MDV 5 MG, THIAMINE HCL INJ 100 MG in SODI... IV SCH (17:12)
--- NOTE | 2018-12-22 17:54 | NUR ---
Dr Godinez paged about possible procedure monday. no answer. message left for return call.
--- NOTE | 2018-12-22 20:05 | Progress Note ---
DATE: 12/22/2018 Medicine Progress Note SUBJECTIVE: The patient states that she feels little better. She felt very nauseous though no vomiting. She did meet with Bariatric Surgery, but he did not still have the plan of care. PHYSICAL EXAMINATION: VITAL SIGNS: Temperature is 96.8, pulse is 60, respiratory rate is 18, blood pressure 113/87, and pulse ox 99% on room air. GENERAL: Not in acute distress. Alert and oriented x3. Cooperative on examination. HEENT: Head; normocephalic, atraumatic. Eyes; pupils are equal, round, and reactive to light bilaterally. Extraocular movements intact bilaterally. Throat; no evidence of erythema or exudates in the posterior pharynx. Has poor dentition. NECK: Supple. Good range of motion. PULMONARY: Clear to auscultation bilaterally. No wheezing, no rales, no rhonchi, no crackles appreciated. CARDIOVASCULAR: Positive S1 and S2. No murmurs, rubs, or gallops appreciated. ABDOMEN: Soft, nondistended, and nontender to palpation. Bowel sounds present. MUSCULOSKELETAL: Strength is 5/5 throughout. No evidence of any muscle deficits on examination. No weakness appreciated. NEUROLOGIC: Cranial nerves II through XII grossly intact. No evidence of any neurological deficits on exam. SKIN: Intact. Warm to touch. Good cap refill. PSYCHIATRIC: Normal affect and mood. EXTREMITIES: No edema. Good range of motion throughout. LABORATORY FINDINGS: Show white count of 5.3, hemoglobin 10.2, hematocrit is 33, and platelets of 241. Chemistry; sodium 139, potassium 3.7, chloride 108, bicarb 22, anion gap of 12, BUN is 5, creatinine is 0.72, glucose is 105, calcium is 8.4, and albumin 3.4. MICROBIOLOGY: None. IMAGING: None. IMPRESSION: 1. Abdominal pain with associated nausea, vomiting, and dehydration. 2. History of gastric sleeve. 3. History of gastritis with peptic ulcer disease. 4. History of rheumatoid arthritis with history of ankylosing spondylosis. 5. Hypothyroidism. PLAN: At this time, she is still on clear liquid diet. We offered to advance the diet. She does not want to do at this time. She will continue with antinausea medication, IV fluids, and pain control. GI is following closely. Bariatric Surgery spoke with the patient, but did not tell her exactly what procedure she is going to have on Monday and he did not write a note. At this time, I am not sure exactly what the plan of care is. Tomorrow, we will have the nursing staff call on the bariatric surgeon to see what the plan of care is. He did tell the nursing staff have the patient on Monday n.p.o. after midnight, but not sure for what test. Otherwise, we will continue same plan of care and monitor closely. MD JONNY Holt/MODSharon /[id number]
[2018-12-22] MEDS: MONTELUKAST SODIUM 10 MG TAB PO SCH (21:23)
[2018-12-23] VITALS (7 sets, daily range): BP systolic 109–138; BP diastolic 59–90
[2018-12-23] MEDS: METOCLOPRAMIDE HCL 10 MG/2ML VIAL IV SCH ×3 (05:43→20:31)
[2018-12-23] MEDS: LEVOTHYROXINE SODIUM 88 MCG TAB PO SCH (05:43)
--- NOTE | 2018-12-23 06:49 | NUR ---
report given to day nurse. patient is resting comfortably in bed. bed is in lowest position and call blunt is within reach.
[2018-12-23] MEDS: BELLADONNA ALK/PHENOBARBITAL 5 ML UDC PO SCH ×3 (08:16→20:31)
[2018-12-23] MEDS: TOPIRAMATE 25 MG TAB PO SCH (08:16)
[2018-12-23] MEDS: SUCRALFATE 1 GM TAB PO SCH ×4 (08:16→20:31)
[2018-12-23] MEDS: GABAPENTIN 300 MG CAP PO SCH ×2 (08:16→16:50)
[2018-12-23] MEDS: FAMOTIDINE 20 MG/2 ML VIAL IV SCH ×2 (08:16→16:50)
[2018-12-23] MEDS: MULTIVITAMINS/MINERALS TAB PO SCH (08:16)
--- NOTE | 2018-12-23 15:50 | NUR ---
Left message to Dr Mendez regarding plan of care as per Dr Garcia
[2018-12-23] MEDS: MULTIVITAMINS- 12 INJECTION 10 ML, FOLIC ACID MDV 5 MG, THIAMINE HCL INJ 100 MG in SODI... IV SCH (16:45)
--- NOTE | 2018-12-23 17:41 | NUR ---
patient resting in bed, not in any distress, as per DR Garcia changed diet to Clear liquid since don't know about plan of Bariatric surgeon on Monday
--- NOTE | 2018-12-23 18:59 | Progress Note ---
DATE: 12/23/2018 Medicine Progress Note SUBJECTIVE: The patient reports still having some abdominal pain despite looking pretty comfortable on examination. She is still on clear liquid diet. Told the nurse to talk with General Bariatric Surgery to see what is the next plan of care for this individual. PHYSICAL EXAMINATION: VITAL SIGNS: Temperature is 97.2, pulse 68, respiratory rate is 18, blood pressure 126/90, pulse ox 100% on room air. GENERAL: Not in acute distress. Alert and oriented x3. Cooperative on examination. HEENT: Head; normocephalic, atraumatic. Eyes; pupils are equal, round, and reactive to light bilaterally. Extraocular movements intact bilaterally. Throat; no evidence of erythema or exudates in the posterior pharynx. Has poor dentition. NECK: Supple. Good range of motion. PULMONARY: Clear to auscultation bilaterally. No wheezing, no rales, no rhonchi, no crackles appreciated. CARDIOVASCULAR: Positive S1 and S2. No murmurs, rubs, or gallops appreciated. ABDOMEN: Soft, nondistended, and nontender to palpation. Bowel sounds present. MUSCULOSKELETAL: Strength is 5/5 throughout. No evidence of any muscle deficits on examination. No weakness appreciated. NEUROLOGIC: Cranial nerves II through XII grossly intact. No evidence of any neurological deficits on exam. SKIN: Intact. Warm to touch. Good cap refill. PSYCHIATRIC: Normal affect and mood. EXTREMITIES: No edema. Good range of motion throughout. LABORATORY DATA: Lab findings show CBC within normal range. Chemistry; reviewed, stable. IMPRESSION: 1. Abdominal pain with associated nausea, vomiting, and dehydration. 2. History of gastric sleeve. 3. History of gastritis with peptic ulcer disease. 4. History of rheumatoid arthritis with history of ankylosing spondylosis. 5. Hypothyroidism. PLAN: She is on clear liquid diet. I told the nurse Gayle to go ahead and call the bariatric surgeon to see what the plan of care is as the plan was for her to be n.p.o., but we do not know what the procedure is and the patient is asking and waiting patiently as well as we do not know. Cannot advance the diet if she wants to do some sort of procedure tomorrow, which I am not aware of. At this time, we will continue with same plan of care. Monitor pulse. Continue with IV fluids, antinausea medication, and pain control. Discussed the plan of care with the nursing staff. We will get ray haskins. MD JONNY Holt/GENE /[id number]
[2018-12-23] MEDS: MONTELUKAST SODIUM 10 MG TAB PO SCH (20:31)
[2018-12-23] MEDS: MORPHINE SULFATE 2 MG/ML SYR 1ML IV PRN (20:42)
[2018-12-23] MEDS: ONDANSETRON HCL INJ 2MG/ML 2ML 2 MG/ML VIAL IV PRN (20:42)
[2018-12-24] VITALS (9 sets, daily range): BP systolic 113–152; BP diastolic 75–96
[2018-12-24] MEDS: METOCLOPRAMIDE HCL 10 MG/2ML VIAL IV SCH ×3 (05:06→21:22)
[2018-12-24] MEDS: LEVOTHYROXINE SODIUM 88 MCG TAB PO SCH (05:06)
[2018-12-24 05:48] LABS: BASOPHILS # (AUTO) 0.1 (0.0-0.1); EOSINOPHILS # (AUTO) 0.4 (0.0-0.4); EOSINOPHILS % 7.6 % (0.0-6.0); HEMATOCRIT 34.4 % (34.2-44.1); LYMPHOCYTES # (AUTO) 1.6 (1.0-3.2); LYMPHOCYTES % 32.1 % (18.0-39.1); MEAN CORPUSCULAR HEMOGLOBIN 26.7 pg (28-32); MEAN CORPUSCULAR VOLUME 83.5 fL (81-99); MONOCYTES # (AUTO) 0.5 (0.2-0.8); NEUTROPHILS # (AUTO) 2.6 (2.1-6.9); NEUTROPHILS % 50.1 % (38.7-80.0); PLATELET COUNT 281 x10e3/uL (140-360); RED BLOOD COUNT 4.12 x10e6/uL (3.6-5.1); RED CELL DISTRIBUTION WIDTH 17.4 % (11.7-14.4)
--- NOTE | 2018-12-24 05:55 | NUR ---
patient made nurse aware that current pain medication is not effective. MD notified. No new orders received. will continue to monitor patient.
[2018-12-24 06:10] LABS: ALANINE AMINOTRANSFERASE 18 IU/L (0-55); ALBUMIN 3.4 g/dL (3.5-5.0); ALBUMIN/GLOBULIN RATIO 1.6 (0.8-2.0); ALKALINE PHOSPHATASE 41 IU/L (40-150); ANION GAP 13.5 mmol/L (8-16); BLOOD UREA NITROGEN < 5 mg/dL (7-26); CALCIUM 8.7 mg/dL (8.4-10.2); CARBON DIOXIDE 23 mmol/L (22-29); CHLORIDE 108 mmol/L (98-107); CREATININE, SERUM 0.78 mg/dL (0.57-1.11); EST GLOMERULAR FILTRATION RATE > 60 ML/MIN (60-); GLUCOSE 96 mg/dL (74-118); POTASSIUM 3.5 mmol/L (3.5-5.1); SODIUM 141 mmol/L (136-145)
[2018-12-24 06:12] LABS: BUN/CREATININE RATIO 6 (6-25)
--- NOTE | 2018-12-24 07:03 | NUR ---
report given to morning nurse. patient is resting comfortably in bed. bed is in lowest position and call blunt is within reach.
[2018-12-24] MEDS: GABAPENTIN 300 MG CAP PO SCH ×2 (09:21→18:43)
[2018-12-24] MEDS: MULTIVITAMINS/MINERALS TAB PO SCH (09:21)
[2018-12-24] MEDS: TOPIRAMATE 25 MG TAB PO SCH (09:21)
[2018-12-24] MEDS: SUCRALFATE 1 GM TAB PO SCH ×4 (09:21→21:22)
[2018-12-24] MEDS: FAMOTIDINE 20 MG/2 ML VIAL IV SCH ×2 (09:21→18:43)
[2018-12-24] MEDS: BELLADONNA ALK/PHENOBARBITAL 5 ML UDC PO SCH ×3 (09:21→21:22)
[2018-12-24] MEDS: MORPHINE SULFATE 2 MG/ML SYR 1ML IV PRN (13:14)
--- NOTE | 2018-12-24 14:53 | Consultation ---
DATE OF CONSULTATION: 12/24/2018 General Surgery Consultation CHIEF COMPLAINT: Nausea, dysphagia. HISTORY OF PRESENT ILLNESS: Ms. Doherty is a 33-year-old female, who underwent a laparoscopic vertical sleeve gastrectomy in 2016 for morbid obesity. She since then she says she has lost 150 pounds. She also states that during the last year, she has developed type 2 diabetes mellitus. She also has a history of rheumatoid arthritis and ankylosing spondylitis. She presented to the emergency department several days ago with nausea, vomiting, and abdominal pain. The patient reports that she has had difficulty keeping food down, specifically solid foods, although she has some difficulty with liquids as well. She does not endorse any current ongoing use of nonsteroidal anti-inflammatory drugs. She does take Enbrel and methotrexate for her rheumatoid arthritis. Since admission, she had a CT scan which showed no acute pathologic findings. She has also been tolerating clear liquids since she has been admitted. REVIEW OF SYSTEMS: Negative except for what was mentioned in the history of present illness. PHYSICAL EXAMINATION: VITAL SIGNS: Stable, afebrile. GENERAL: No acute distress. HEAD: Atraumatic. NECK: Supple. EYES: Extraocular motions intact. SKIN: Warm and well perfused. ABDOMEN: Soft, nontender, nondistended. CARDIORESPIRATORY: Nonlabored breathing. PAST MEDICAL HISTORY: 1. Type 2 diabetes mellitus. 2. Psoriatic arthritis. 3. Rheumatoid arthritis. 4. Ankylosing spondylitis. 5. Hypothyroidism. 6. Peripheral neuropathy. PAST SURGICAL HISTORY: Status post laparoscopic sleeve gastrectomy. IMPRESSION: Dysphagia, status post sleeve gastrectomy three years ago. PLAN: I recommend evaluation by Gastroenterology and upper endoscopy to rule out any mucosal disease in the gastric sleeve such as ulceration or gastritis. In the meantime, I recommend the use of Protonix or other PPI for her symptoms. I believe her admitting physician has already started her on Carafate and Protonix. We can DC the banana bag and advance her to a pureed diet and see if she can tolerate that. No acute surgical findings at this time. We will continue to follow. Thank you for the consultation. MD DAVID Graham/GENE /[id number]
[2018-12-24] MEDS ORDERED: MORPHINE SULFATE 2 MG/ML SYR 1ML IV PRN (20:15)
--- NOTE | 2018-12-24 20:20 | NUR ---
Patient is taking shower at this time. Will continue to monitor.
--- NOTE | 2018-12-24 21:19 | NUR ---
Started new IV on left wrist 18G at this time. Will continue to monitor.
--- NOTE | 2018-12-24 21:20 | Progress Note ---
DATE: 12/24/2018 Medicine Progress Note SUBJECTIVE: The patient is doing well with no other issues. She does complain of episodic abdominal pain, but she is always resting when I come and evaluate her. I am not sure if this patient truly has pain, but GI was consulted and hopefully, we can have an EGD to further evaluate this lady's underlying etiology. OBJECTIVE: VITAL SIGNS: Temperature is 97.9, pulse is recorded at 68, respiratory rate is 18, blood pressure 152/94, and pulse ox 100% on room air. GENERAL: Not in acute distress. Alert and oriented x3. Cooperative on examination. HEENT: Head; normocephalic and atraumatic. Eyes; pupils are equal, round, and reactive to light bilaterally. Extraocular movements intact bilaterally. Throat; no evidence of erythema or exudate in the posterior pharynx. Has poor dentition. NECK: Supple. Good range of motion. PULMONARY: Clear to auscultation bilaterally. No wheezing, rales, or rhonchi. No crackles appreciated. CARDIOVASCULAR: Positive S1 and S2. No murmurs, rubs, or gallops appreciated. ABDOMEN: Soft, nondistended, and nontender to palpation. Bowel sounds present. MUSCULOSKELETAL: Strength is 5/5 throughout. No evidence of any muscle deficits on examination. No weakness appreciated. NEUROLOGIC: Cranial nerve II through XII grossly intact. No evidence of any neurological deficits on exam. SKIN: Intact. Warm to touch. Good cap refill. PSYCHIATRIC: Normal affect and mood. EXTREMITIES: No edema. Good range of motion throughout. LAB FINDINGS: Show white count 5.1, hemoglobin 11, hematocrit 34, and platelets of 281. Chemistry; sodium 141, potassium 3.5, chloride 108, bicarbonate 23, anion gap of 13, BUN is 5, creatinine is 0.78, and total bilirubin is 1.4. LFTs were normal. Lipase was 25. Micro, none. IMAGING: None. IMPRESSION: 1. Abdominal pain with associated nausea, vomiting, and dehydration. 2. History of gastric sleeve. 3. History of gastritis with peptic ulcer disease. 4. History of rheumatoid arthritis with ankylosing spondylosis. 5. Hypothyroidism. PLAN: Advance diet to soft diet. Bariatric surgery recommend EGD. We will discuss with GI regarding EGD possibly tomorrow. I did decrease the pain control to 4 mg of IV morphine to every 4 hours p.r.n. No further workup needed by General Surgery. Once we get this EGD performed and there are no findings, we will discharge home hopefully tomorrow. We will continue with IV fluids, for now antinausea medication and pain control. Get a.m. labs. MD JONNY Holt/GENE /[id number]
[2018-12-24] MEDS: MONTELUKAST SODIUM 10 MG TAB PO SCH (21:22)
--- NOTE | 2018-12-24 21:30 | NUR ---
Report given to YAZMIN Elizabeth. Patient transferred at 2155 by wheelchair with sable condition with help of RAMON zayas.
[2018-12-24] MEDS: ONDANSETRON HCL INJ 2MG/ML 2ML 2 MG/ML VIAL IV PRN (23:17)
[2018-12-24] MEDS: MORPHINE SULFATE INJ 4 MG/ML INJ 1ML IV PRN (23:17)
[2018-12-25] VITALS (7 sets, daily range): BP systolic 113–145; BP diastolic 60–87
[2018-12-25] MEDS: ONDANSETRON HCL INJ 2MG/ML 2ML 2 MG/ML VIAL IV PRN (03:39)
[2018-12-25] MEDS: MORPHINE SULFATE INJ 4 MG/ML INJ 1ML IV PRN ×2 (03:40→22:00)
[2018-12-25 05:26] LABS: BASOPHILS # (AUTO) 0.1 (0.0-0.1); EOSINOPHILS # (AUTO) 0.3 (0.0-0.4); HEMATOCRIT 37.5 % (34.2-44.1); HEMOGLOBIN 11.9 g/dL (12.0-16.0); LYMPHOCYTES # (AUTO) 1.8 (1.0-3.2); LYMPHOCYTES % 34.9 % (18.0-39.1); MEAN CORPUSCULAR HEMOGLOBIN 26.3 pg (28-32); MEAN CORPUSCULAR HGB CONC 31.7 g/dL (31-35); MEAN CORPUSCULAR VOLUME 82.8 fL (81-99); MONOCYTES # (AUTO) 0.4 (0.2-0.8); NEUTROPHILS # (AUTO) 2.6 (2.1-6.9); NEUTROPHILS % 50.9 % (38.7-80.0); PLATELET COUNT 300 x10e3/uL (140-360); RED BLOOD COUNT 4.53 x10e6/uL (3.6-5.1); RED CELL DISTRIBUTION WIDTH 17.4 % (11.7-14.4)
[2018-12-25] MEDS: LEVOTHYROXINE SODIUM 88 MCG TAB PO SCH (05:36)
[2018-12-25] MEDS: METOCLOPRAMIDE HCL 10 MG/2ML VIAL IV SCH ×3 (05:43→21:45)
[2018-12-25 05:46] LABS: ANION GAP 15.2 mmol/L (8-16); BLOOD UREA NITROGEN < 5 mg/dL (7-26); CALCIUM 9.1 mg/dL (8.4-10.2); CARBON DIOXIDE 24 mmol/L (22-29); CHLORIDE 106 mmol/L (98-107); CREATININE, SERUM 0.73 mg/dL (0.57-1.11); EST GLOMERULAR FILTRATION RATE > 60 ML/MIN (60-); GLUCOSE 95 mg/dL (74-118); POTASSIUM 3.2 mmol/L (3.5-5.1); SODIUM 142 mmol/L (136-145)
[2018-12-25 05:47] LABS: BUN/CREATININE RATIO 7 (6-25)
--- NOTE | 2018-12-25 07:03 | NUR ---
Surgery progress note S: No new complaints, passing gas, tolerating liquids O: AF, VSS General- no acute distress A/P: Dysphagia, epigastric pain (s/p Lap SG 3 yr ago) -EGD today -Cont conservative treatment
--- NOTE | 2018-12-25 07:08 | NUR ---
pt asleep, upon rounds pt alert resp even and unlabored at this time, pt easily aroused, no distress noted, pt NPO at this time, pt able to make needs known, call light in reach
[2018-12-25] MEDS: SUCRALFATE 1 GM TAB PO SCH ×4 (07:30→21:45)
[2018-12-25] MEDS: TOPIRAMATE 25 MG TAB PO SCH (09:00)
[2018-12-25] MEDS: MULTIVITAMINS/MINERALS TAB PO SCH (09:00)
[2018-12-25] MEDS: GABAPENTIN 300 MG CAP PO SCH ×2 (09:00→16:54)
[2018-12-25] MEDS: FAMOTIDINE 20 MG/2 ML VIAL IV SCH ×2 (09:00→16:54)
[2018-12-25] MEDS: BELLADONNA ALK/PHENOBARBITAL 5 ML UDC PO SCH ×3 (09:00→21:45)
[2018-12-25] MEDS ORDERED: POTASSIUM CHLORIDE 20MEQ/100ML 200 ML IV ONE ×2 (12:15→19:30)
[2018-12-25] MEDS ORDERED: DEXTROSE 50% SYRINGE 50 ML IV PRN (12:15)
[2018-12-25] MEDS ORDERED: DEXTROSE 5%/0.45% SOD CHL 1,000 ML IV ONE (12:15)
--- NOTE | 2018-12-25 13:35 | Progress Note ---
DATE: 12/25/2018 Medicine Progress Note SUBJECTIVE: She is scheduled for EGD later today. After that we will see if she tolerates the diet well, if she does well, likely discharge home tomorrow. PHYSICAL EXAMINATION: VITAL SIGNS: Temperature is 97.2, pulse 63, respiratory rate 19, blood pressure 122/77, pulse ox 96% on room air. GENERAL: Not in acute distress. Alert and oriented x3. Cooperative on examination. HEENT: Head; normocephalic, atraumatic. Eyes; pupils are equal, round, and reactive to light bilaterally. Extraocular movements intact bilaterally. Throat; no evidence of erythema or exudates in the posterior pharynx. Has poor dentition. NECK: Supple. Good range of motion. PULMONARY: Clear to auscultation bilaterally. No wheezing, no rales, no rhonchi, no crackles appreciated. CARDIOVASCULAR: Positive S1 and S2. No murmurs, rubs, or gallops appreciated. ABDOMEN: Soft, nondistended, and nontender to palpation. Bowel sounds present. MUSCULOSKELETAL: Strength is 5/5 throughout. No evidence of any muscle deficits on examination. No weakness appreciated. NEUROLOGIC: Cranial nerves II through XII grossly intact. No evidence of any neurological deficits on exam. SKIN: Intact. Warm to touch. Good cap refill. PSYCHIATRIC: Normal affect and mood. EXTREMITIES: No edema. Good range of motion throughout. LABORATORY DATA: Lab findings CBC within normal range. Chemistries reviewed, shows low potassium, which we will replace. IMPRESSION: 1. Abdominal pain with associated nausea, vomiting, and dehydration, scheduled for esophagogastroduodenoscopy later today. 2. History of gastric sleeve. 3. History of gastritis with peptic ulcer disease. 4. History of rheumatoid arthritis with ankylosing spondylosis. 5. Hypothyroidism. PLAN: At this time, she is scheduled for EGD later today. We will advance diet after the procedure and see if she tolerates well. Repeat labs in the morning. Replace potassium. If she does well, tolerates diet, we will discharge home tomorrow. No significant findings found on EGD today. MD JONNY Holt/MODSharon /[id number]
[2018-12-25] MEDS ORDERED: ALBUTEROL SULF 0.083% NEB SOLN 3 ML NEB ONE (13:37)
[2018-12-25] MEDS ORDERED: LIDOCAINE HCL 2% LOCAL INJ 5 ML SDV VIAL INJ ONE (14:55)
[2018-12-25] MEDS ORDERED: PROPOFOL IV EMULSION 10 MG/ML 20 ML VIAL ONE (14:55)
[2018-12-25] MEDS ORDERED: MIDAZOLAM HCL 2 MG/2 ML VIAL ONE (15:20)
[2018-12-25] MEDS ORDERED: FENTANYL CITRATE/PF 100MCG/2 ML INJ ONE (15:20)
--- NOTE | 2018-12-25 19:44 | NUR ---
report given to oncoming nurse, pt stable.
[2018-12-25] MEDS ORDERED: SODIUM CHLORIDE 0.9% 250ML 250 ML ONE (21:08)
[2018-12-25] MEDS: MONTELUKAST SODIUM 10 MG TAB PO SCH (21:45)
[2018-12-26 00:20] VITALS: BP 99/64
[2018-12-26 04:30] VITALS: BP 97/60
[2018-12-26 05:19] LABS: BASOPHILS # (AUTO) 0.1 (0.0-0.1); BASOPHILS % 0.9 % (0.0-1.0); EOSINOPHILS # (AUTO) 0.3 (0.0-0.4); EOSINOPHILS % 6.2 % (0.0-6.0); HEMATOCRIT 37.2 % (34.2-44.1); HEMOGLOBIN 11.9 g/dL (12.0-16.0); LYMPHOCYTES # (AUTO) 1.3 (1.0-3.2); LYMPHOCYTES % 24.1 % (18.0-39.1); MEAN CORPUSCULAR HEMOGLOBIN 26.4 pg (28-32); MEAN CORPUSCULAR VOLUME 82.5 fL (81-99); MONOCYTES # (AUTO) 0.4 (0.2-0.8); NEUTROPHILS # (AUTO) 3.3 (2.1-6.9); NEUTROPHILS % 60.6 % (38.7-80.0); PLATELET COUNT 260 x10e3/uL (140-360); RED BLOOD COUNT 4.51 x10e6/uL (3.6-5.1); RED CELL DISTRIBUTION WIDTH 17.2 % (11.7-14.4)
[2018-12-26 05:20] VITALS: BP 110/65
[2018-12-26 05:37] LABS: ANION GAP 14.8 mmol/L (8-16); BLOOD UREA NITROGEN 10 mg/dL (7-26); BUN/CREATININE RATIO 14 (6-25); CALCIUM 8.9 mg/dL (8.4-10.2); CARBON DIOXIDE 23 mmol/L (22-29); CHLORIDE 104 mmol/L (98-107); CREATININE, SERUM 0.74 mg/dL (0.57-1.11); EST GLOMERULAR FILTRATION RATE > 60 ML/MIN (60-); GLUCOSE 106 mg/dL (74-118); POTASSIUM 3.8 mmol/L (3.5-5.1); SODIUM 138 mmol/L (136-145)
--- NOTE | 2018-12-26 07:00 | NUR ---
Pt received resting in bed. Alert and oriented to staff and surroundings. Encouraged to press call blunt if help needed. Pt verbalized understanding of teaching. Call blunt within reach. Pt with right hand #20. Call blunt within reach. Will monitor
[2018-12-26] MEDS: LEVOTHYROXINE SODIUM 88 MCG TAB PO SCH (07:33)
[2018-12-26] MEDS: ONDANSETRON HCL INJ 2MG/ML 2ML 2 MG/ML VIAL IV PRN (07:34)
--- NOTE | 2018-12-26 07:35 | NUR ---
patient endorsed to next shift for continuity of care.
[2018-12-26 08:00] VITALS: BP 120/67
--- NOTE | 2018-12-26 08:45 | NUR ---
All meds given as ordered. Call blunt within reach. Will monitor
[2018-12-26 09:18] VITALS: BP 120/67
[2018-12-26] MEDS: GABAPENTIN 300 MG CAP PO SCH (09:18)
[2018-12-26] MEDS: METOCLOPRAMIDE HCL 10 MG/2ML VIAL IV SCH ×2 (09:18→12:13)
[2018-12-26] MEDS: SUCRALFATE 1 GM TAB PO SCH ×2 (09:18→12:13)
[2018-12-26] MEDS: MULTIVITAMINS/MINERALS TAB PO SCH (09:18)
[2018-12-26] MEDS: FAMOTIDINE 20 MG/2 ML VIAL IV SCH (09:18)
[2018-12-26] MEDS: TOPIRAMATE 25 MG TAB PO SCH (09:18)
[2018-12-26] MEDS: BELLADONNA ALK/PHENOBARBITAL 5 ML UDC PO SCH (09:45)
[2018-12-26 12:00] VITALS: BP 94/60
[2018-12-26] MEDS ORDERED: PANTOPRAZOLE SO40 MG PO (12:51)
[2018-12-26] MEDS ORDERED: TYLENOL WITH C1 EACH PO (12:52)
--- NOTE | 2018-12-26 13:12 | NUR ---
Pt given discharge instructions regarding meds, diet, activities, s/s to report and follow up appointment. pt verbalized understanding of teaching. Leaving via wheelchair to private car
--- NOTE | 2018-12-27 02:47 | Discharge Summary ---
FINAL DISCHARGE DIAGNOSES: 1. Abdominal pain secondary to gastritis. 2. Nausea and vomiting, resolved. 3. History of gastric sleeve. 4. History of gastritis and peptic ulcer disease. 5. History of rheumatoid arthritis with ankylosing spondylosis. 6. Hypothyroidism. CONSULTANTS: GI, General Surgery, and Bariatric Surgery. VITAL SIGNS: Temperature is 97.1, pulse 70, respiratory rate 20, blood pressure 120/67, and pulse ox 96% on room air. LAB FINDINGS: Show white count is 5.4, hemoglobin 11.9, hematocrit is 37, and platelets of 260. Chemistry; sodium 138, potasium 3.8, chloride 104, bicarb 20, anion gap is 14, BUN 10, creatinine 0.74, glucose is 106, calcium is 8.9, total bilirubin is 1.4, AST was 21, ALT is 18. Lipase level was 25, normal. Albumin 3.4. Urinalysis negative. MICROBIOLOGY: None. IMAGING STUDIES: Abdominal x-ray, impression; nonspecific bowel gas pattern. Gas-filled loops of large and small bowel without overall dilation, although early obstruction is possible. CT abdomen and pelvis shows no acute intra-abdominal abnormalities. Surgical changes of partial gastrectomy without complication. HOSPITAL COURSE: This is a 33-year-old female, morbidly obese, who had a gastric sleeve surgery about 4 years ago approximately, who presented to the [facility] with complaints of abdominal pain, nausea, and vomiting. The patient was admitted. General Surgery, Bariatric Surgery, and GI were consulted. The patient started on clear liquid diet initially, advanced to regular food prior to being discharged. All consultants recommended an EGD, which was performed, found to have only gastritis on imaging studies. No reports of any peptic ulcer. There were some biopsies performed, in which she was advised to follow up with GI as an outpatient in about 2 weeks' time with pathology results. No further workup was needed by GI, General surgery, and Bariatric Surgery. She was tolerating diet well with no complaints. The patient is back to normal baseline prior to being discharged home. On the day of discharge, vital signs were stable, labs reviewed and stable. The patient is seen and evaluated, examined thoroughly on the day of discharge. No other complaints. The patient verbalized understanding and agreed to plan of care to followup accordingly as an outpatient with primary care physician in 1 week and GI specialist in about 2 weeks' time. MEDICATIONS: See med reconciliation form. DISPOSITION: Home. CONDITION: Stable. DIET: Heart healthy. In the event of any worsening symptoms, the patient advised to come back to the ED for further evaluation. Discharge summary took greater than 35 minutes. MD JONNY Holt/MODSharon /[id number]
== END 2018-12-26 13:38 | disposition home or self-care (01) | DRG 392 ==
LOC: ER 18:47 → ERHOLD 12-20 00:24 → IMCU 12-20 14:25 → OBSVTOIN 12-22 09:04 → MED/SURG2 12-24 22:00
PROVIDERS: ADMIT Internal Medicine; ATTEND Internal Medicine
PROC: 0DB38ZX Excision of Lower Esophagus, Via Natural or Artificial Opening Endoscopic, Diagnostic (ICD-10-PCS; 2018-12-25)
PROC: 0DB98ZX Excision of Duodenum, Via Natural or Artificial Opening Endoscopic, Diagnostic (ICD-10-PCS; principal; 2018-12-25 12:53)
DX: K29.70 Gastritis, unspecified, without bleeding (principal); E86.0 Dehydration; Z98.84 Bariatric surgery status; Z87.11 Personal history of peptic ulcer disease; M06.9 Rheumatoid arthritis, unspecified; E03.9 Hypothyroidism, unspecified; J44.9 Chronic obstructive pulmonary disease, unspecified; Z90.49 Acquired absence of other specified parts of digestive tract; E11.9 Type 2 diabetes mellitus without complications; L40.50 Arthropathic psoriasis, unspecified; E11.42 Type 2 diabetes mellitus with diabetic polyneuropathy; Z79.4 Long term (current) use of insulin; M47.899 Other spondylosis, site unspecified
CPT/HCPCS: 36415; 43239; 74018; 74177; 80048; 80053; 81001; 81025; 82948; 83690; 85025; 88305; 88312; 96374; 99284; G0378; J2001; J2250; J2270; J2405; J2550; J2765; J3010; J3411; J3480; J7030; J7050; J7799; Q9967

== ENCOUNTER 2019-04-19 15:29 | Emergency (ER) | payer OTHER ==
[~2019-04-19] VITALS: Ht 167.6 cm; Wt 106.1 kg
[~2019-04-19 15:29] MED LIST changes: +CETIRIZINE HCL10 MG PO; +ENBREL50 MG/1 M1 SC; +FLUTICASONE PRO16 GM; +GABAPENTIN600 MG PO; +IRON325 M1 PO; +LEVOTHYROXINE88 MCG PO; +METFORMIN HCL1000 MG PO; +METHOTREXATE2.5 MG PO; +MONTELUKAST SOD10 MG PO; +ONDANSETRON HCL8 MG PO; +PANTOPRAZOLE SO40 MG PO; +TOPIRAMATE50 MG PO; +TYLENOL WITH C1 EACH PO; +VENLAFAXINE H37.5 M1 PO; +VITAMIN D250000 UNIT PO
--- OUTSIDE RECORDS SUMMARY | 2019-04-19 15:35 | XMS REPORT | Summary of Care ---
Author Author Tara Patel M.A. Unknown Address [facility] Phone Unavailable Care Team Providers Care Spot Checker Name Role Phone BRYNN Joshi, PEYTON Loera Unavailable Jorge Acevedo, Tara Unavailable Unavailable SENG CHACON [place], SAMMI LAO Unavailable Unavailable KENA CHACON, GREER SIMEON Unavailable Unavailable BRYNN CHACON, PEYTON Perez Unavailable Unavailable SENG Joshi, SAMMI Unavailable Unavailable [...] labrum, initial encounter (843.8, S73.191A) Status: Active Acute maxillary sinusitis (461.0, J01.00) Status: Active Hypertrophy of nasal turbinates (478.0, J34.3) Status: Active Chronic rhinitis (472.0, J31.0) Status: Active Medications Name Dates Details Synthroid 50 MCG Oral Tablet TAKE 1 TABLET DAILY. Active Ferrous Sulfate TABS one tab QD PER CHART * Refills: 0 Active Methotrexate (Anti-Rheumatic) 2.5 MG TABS * Refills: 0 Active Cetirizine HCl 1 MG/ML SYRP * Refills: 0 Active Flonase SUSP * Refills: 0 Active metFORMIN HCl TABS * Refills: 0 Active Ipratropium [place] 0.06 % Nasal Solution USE 2 SPRAYS IN EACH NOSTRIL 2-3 TIMES DAILY. * Quantity: 1 Refills: 6 PEYTON SWAIN M.D. Start : 14-Dec-2018 Active levoFLOXacin 500 MG Oral Tablet TAKE 1 TABLET DAILY DIRECTED. * Quantity: 21 Refills: 0 PEYTON SWAIN M.D. Start : 15-Jan-2019 Active Doxycycline Monohydrate 100 MG Oral Tablet TAKE 1 TABLET TWICE DAILY. * Quantity: 60 Refills: 0 PEYTON SWAIN M.D. * Start : 27-Feb-2019 Active Xhance 93 MCG/ACT Nasal Exhaler Suspension 2 sprays each nostril BID * Quantity: 2 Refills: 4 PEYTON SWAIN M.D. Start : 27-Feb-2019 Active 16 ML Box Allergies and Adverse Reactions Name Dates Details [...] smoker Vital Signs Date Test Result Details 19-Fjq-[id number]:21 Height 66 in Status: Weight 230.25 lb Status: Body Mass Index Calculated 37.16 kg/m2 Status: Body Surface Area Calculated 2.12 m2 Status: Results Date Description Value Details 22-Feb-20199:38 CT Sinus wo contrast [address] SEE NOTES Comments: Clinical Indication: - J31.0 Chronic rhinitisComparison: NoneTechnique: CT of the sinuses is performed without contrast on a multi-detectorCT. Coronal and sagittal reconstructions were obtained.CT Radiation Dose DLP 548 mGy-cmFINDINGS:PARANASAL SINUSES: Mucosal inflammatory changes throughout the right frontalsinus, ethmoid air cells, sphenoid sinus and within the bilateral maxillarysinuses consistent with pansinusitis is present. There is a hypoplastic leftfrontal sinus. There is significant mucosal inflammatory changes involving thebilateral maxillary ostium.SOFT TISSUES: There is no soft tissue swelling seen. There is no significantlymphadenopathy noted. There are no fluid collections.NASAL CAVITY: The nasal septum is in midline position. There is no nasalpolyposis. The turbinates are normal. There is mucosal prominence highly nasalpassage. Mucosal inflammatory changes are seen of the sphenoid ethmoid andfrontal ethmoid recesses.ORBITS: The globes and extraocular muscles appear unremarkable. The orbitalapex regions appear unremarkable. The orbital roof, floor, superior, inferior,medial and lateral cole are intact.FACIAL BONES: There are no facial bone fractures noted. The pterygoid platesare intact. The zygomatic arches are intact. The cribriform plate and cristagalli regions are unremarkable. The maxilla is intact. The mandible is intactwith intact mandibular condyles and coronoid processes.IMPRESSION:Pansinusitis without fluid levels likely chronic.SL: JJ--Read by: Kurt Jallohictated Date/time: 02/22/19 20:03Electronically Signed by: Kurt Jalloh MD 02/23/1920:05FINAL REPORT Plan of Care Name Dates Details Planned Observations Planned Goals not documented Instructions Name Dates Details Instructions not documented [...] Diagnosis: Problem not documented On: 14-Dec-2018 10:00 Appointment; PEYTON SWAIN M.D. Encounter Diagnosis: Problem not documented On: 15-Jan-2019 10:15 Appointment; PEYTON SWAIN M.D. Encounter Diagnosis: Problem not documented On: 15-Feb-2019 8:00
[2019-04-19 16:36] LABS: BASOPHILS # (AUTO) 0.1 (0.0-0.1); BASOPHILS % 0.8 % (0.0-1.0); EOSINOPHILS # (AUTO) 0.4 (0.0-0.4); EOSINOPHILS % 4.9 % (0.0-6.0); HEMOGLOBIN 12.2 g/dL (12.0-16.0); LYMPHOCYTES # (AUTO) 2.1 (1.0-3.2); LYMPHOCYTES % 25.7 % (18.0-39.1); MEAN CORPUSCULAR HEMOGLOBIN 27.8 pg (28-32); MEAN CORPUSCULAR HGB CONC 32.1 g/dL (31-35); MEAN CORPUSCULAR VOLUME 86.6 fL (81-99); MONOCYTES # (AUTO) 0.4 (0.2-0.8); MONOCYTES % 4.2 % (4.4-11.3); NEUTROPHILS # (AUTO) 5.3 (2.1-6.9); NEUTROPHILS % 64.2 % (38.7-80.0); PLATELET COUNT 324 x10e3/uL (140-360); RED BLOOD COUNT 4.39 x10e6/uL (3.6-5.1); RED CELL DISTRIBUTION WIDTH 13.9 % (11.7-14.4)
[2019-04-19 16:42] LABS: PREGNANCY TEST, URINE NEGATIVE (NEGATIVE)
[2019-04-19 16:43] LABS: BILIRUBIN,URINE NEGATIVE (NEGATIVE); CLARITY,URINE SL CLOUDY (CLEAR); COLOR,URINE YELLOW (YELLOW); KETONES,URINE NEGATIVE (NEGATIVE); LEUKOCYTE ESTERASE ,URINE NEGATIVE (NEGATIVE); NITRITE,URINE NEGATIVE (NEGATIVE); PROTEIN,URINE DIPSTICK NEGATIVE (NEGATIVE); URINE UROBILINOGEN 0.2 mg/dL (0.2 - 1)
[2019-04-19 16:53] LABS: BACTERIA,URINE FEW /HPF; EPITHELIAL CELLS,URINE FEW /LPF; RBC,URINE 0-5 /HPF (0-5); WBC,URINE (MAN) 0-5 /HPF (0-5)
[2019-04-19 16:56] LABS: ALANINE AMINOTRANSFERASE 16 IU/L (0-55); ALBUMIN 3.9 g/dL (3.5-5.0); ALBUMIN/GLOBULIN RATIO 1.4 (0.8-2.0); ALKALINE PHOSPHATASE 58 IU/L (40-150); ANION GAP 13.8 mmol/L (8-16); BLOOD UREA NITROGEN 10 mg/dL (7-26); BUN/CREATININE RATIO 13 (6-25); CALCIUM 9.1 mg/dL (8.4-10.2); CARBON DIOXIDE 25 mmol/L (22-29); CHLORIDE 99 mmol/L (98-107); CREATINE KINASE 66 IU/L (29-168); CREATININE, SERUM 0.77 mg/dL (0.57-1.11); EST GLOMERULAR FILTRATION RATE > 60 ML/MIN (60-); GLUCOSE 257 mg/dL (74-118); POTASSIUM 3.8 mmol/L (3.5-5.1); SODIUM 134 mmol/L (136-145)
--- NOTE | 2019-04-19 17:11 | Diagnostic Imaging Report ---
EXAMINATION: CHEST 2 VIEWS INDICATION: Shortness of breath, weakness, dizziness ^ORDER PLACED BY ^[id number] ^[id number] ^Y COMPARISON: None FINDINGS: PA and lateral views TUBES and LINES: None. LUNGS: Lungs are well inflated. There is no evidence of pneumonia or pulmonary edema. PLEURA: No pleural effusion or pneumothorax. HEART AND MEDIASTINUM: The cardiomediastinal silhouette is unremarkable.. BONES AND SOFT TISSUES: No focal osseous lesions. Soft tissues are unremarkable. UPPER ABDOMEN: Unremarkable. Cholecystectomy clips in the upper abdomen. IMPRESSION: No acute thoracic abnormality. Signed by: Dr. Shu Gonzalez MD on 04/19/2019 5:08 PM
[2019-04-19 18:07] VITALS: BP 124/81
== END 2019-04-19 18:12 | disposition home or self-care (01) ==
LOC: ER 15:29
DX: R53.1 Weakness (principal); R42 Dizziness and giddiness; E11.9 Type 2 diabetes mellitus without complications; Z79.4 Long term (current) use of insulin; E03.9 Hypothyroidism, unspecified; M06.9 Rheumatoid arthritis, unspecified
CPT/HCPCS: 36415; 71046; 80053; 81001; 81025; 82550; 82553; 82948; 84484; 85025; 87086; 87400; 93005; 99283

== ENCOUNTER → 2019-07-09 | Day surgery (SDC) | payer OTHER ==
[2019-07-05 11:05] LABS: BASOPHILS % 0.6 % (0.0-1.0); EOSINOPHILS # (AUTO) 0.3 (0.0-0.4); HEMATOCRIT 38.1 % (34.2-44.1); HEMOGLOBIN 11.8 g/dL (12.0-16.0); LYMPHOCYTES # (AUTO) 1.4 (1.0-3.2); LYMPHOCYTES % 28.8 % (18.0-39.1); MEAN CORPUSCULAR VOLUME 84.1 fL (81-99); MONOCYTES # (AUTO) 0.2 (0.2-0.8); MONOCYTES % 5.1 % (4.4-11.3); NEUTROPHILS # (AUTO) 2.7 (2.1-6.9); NEUTROPHILS % 58.3 % (38.7-80.0); PLATELET COUNT 338 x10e3/uL (140-360); RED BLOOD COUNT 4.53 x10e6/uL (3.6-5.1); RED CELL DISTRIBUTION WIDTH 14.4 % (11.7-14.4)
[2019-07-05 11:13] LABS: ANION GAP 12.8 mmol/L (8-16); BLOOD UREA NITROGEN 13 mg/dL (7-26); BUN/CREATININE RATIO 18 (6-25); CALCIUM 8.8 mg/dL (8.4-10.2); CARBON DIOXIDE 25 mmol/L (22-29); CHLORIDE 103 mmol/L (98-107); CREATININE, SERUM 0.72 mg/dL (0.57-1.11); EST GLOMERULAR FILTRATION RATE > 60 ML/MIN (60-); GLUCOSE 227 mg/dL (74-118); POTASSIUM 3.8 mmol/L (3.5-5.1); SODIUM 137 mmol/L (136-145)
[~2019-07-09] MED LIST changes: +ACETAMINOPHEN 1000 MG/100 ML IV ONE; +BUPIVACAINE 0.5%/EPI 30 ML SDV INJ ONE; +DEXAMETHASONE SOD PHOS INJ 4 MG/ML VIAL ONE; +FENTANYL CITRATE/PF 100MCG/2 ML INJ ONE; +GLYBURIDE5 MG PO; +INSULIN REGULAR, HUMAN 100 UNIT/1 ML 3ML VIAL ONE; +KETOROLAC TROMETHAMINE 30 MG/ML VIAL ONE; +LIDOCAINE HCL 2% LOCAL INJ 5 ML SDV VIAL INJ ONE; +MIDAZOLAM HCL 2 MG/2 ML VIAL ONE; +NOVOLIN N100 UNIT/1 SC; +ONDANSETRON HCL INJ 2MG/ML 2ML 2 MG/ML VIAL ONE; +PROPOFOL IV EMULSION 10 MG/ML 20 ML VIAL ONE; +ROCURONIUM BROMIDE 10 MG/ML 5ML VIAL ONE; +SEVOFLURANE INHAL SOLN 250 ML PEN BTL ONE
--- OUTSIDE RECORDS SUMMARY | 2019-07-09 07:15 | XMS REPORT | Summary of Care ---
Author Author Bear Acevedo, [facility] Unknown Address Unknown Phone Unavailable Care Team Providers Care Guest Service Agent Name Role Phone GLEN Joshi, HARRY Unavailable Unavailable BRYNN Joshi, PEYTON Unavailable Evaristo ELLSWORTH MD [place], SAMMI LAO Unavailable Unavailable KENA CHACON, GREER [...] Active Chronic rhinitis (472.0, J31.0) Status: Active Pain of right hip joint (719.45, M25.551) Status: Active Acute pain of right wrist (719.43, M25.531) Status: Active Medications Name Dates Details Synthroid 50 MCG Oral Tablet TAKE 1 TABLET DAILY. Active Ferrous Sulfate TABS one tab QD PER CHART * Refills: 0 Active Methotrexate (Anti-Rheumatic) 2.5 MG TABS * Refills: 0 Active Cetirizine HCl 1 MG/ML SYRP * Refills: 0 Active Flonase SUSP * Refills: 0 Active metFORMIN HCl TABS * Refills: 0 Active Ipratropium [place] 0.06 % Nasal Solution USE 2 SPRAYS IN EACH NOSTRIL 2-3 TIMES DAILY. * Quantity: 1 Refills: 6 PEYTON SWAIN M.D. Start : 14-Dec-2018 Active levoFLOXacin 500 MG Oral Tablet TAKE 1 TABLET DAILY DIRECTED. * Quantity: 21 Refills: 0 PEYTON SWAIN M.D. * Start : 15-Jan-2019 Active Doxycycline Monohydrate 100 [...] L30.9) Status: Resolved Procedures Procedure Dates Details [U] XRAY HIP UNILATERAL MIN 2 VWS RIGHT [id number] Date: 24-May-2019 [U] XRAY WRIST MIN 3 VWS RIGHT [id number] Date: 24-May-2019 History of Neck Surgery Completed History of [...] smoker Vital Signs Date Test Result Details No Known Vitals to report Results Date Description Value Details Results not documented Plan of Care Name Dates Details Planned Observations Planned Goals not documented Planned Encounters Appointment; HARRY CARROLL M.D. On: 27-May-2019 15:45 Interventions Provided Labs/Procedures/Imaging* [U] XRAY HIP UNILATERAL MIN 2 VWS RIGHT [id number]; To Be Done: 27 May 2019 * [U] XRAY WRIST MIN 3 VWS RIGHT [id number]; To Be Done: 27 May 2019 Instructions Name Dates Details Instructions not documented [...] Diagnosis: Problem not documented On: 15-Feb-2019 8:00 Appointment; HARRY CARROLL M.D. Encounter Diagnosis: Problem not documented On: 27-May-2019 15:45
[2019-07-09 13:10] VITALS: BP 110/78
--- NOTE | 2019-07-09 13:27 | Operative Report ---
DATE OF PROCEDURE: SURGEON: Tatiana Cruz MD PREOPERATIVE DIAGNOSES: 1. Pelvic pain. 2. Menorrhagia. POSTOPERATIVE DIAGNOSES: 1. Pelvic pain. 2. Menorrhagia. PROCEDURES: 1. Laparoscopy. 2. Excision of bilateral adnexal mass. 3. Hysteroscopy. 4. Dilation and curettage. COMPLICATIONS: None. ESTIMATED BLOOD LOSS: Minimal. DESCRIPTION OF PROCEDURE: The patient was taken to the OR. General anesthesia was induced. She was prepped and draped in a normal sterile fashion, placed in dorsal lithotomy position. After examination under anesthesia, a single-port laparoscopy was performed. This was performed with making an incision in the umbilicus and extending downward about 3 cm. Subcutaneous tissue dissected with a hemostat using S-shaped retractor. The rectus fascia was tented using two Janelle's and a knife was used to open the rectus fascia followed by the peritoneum. Following this, the incision was extended vertically using curved Rosas scissors and the single point was inserted and the abdomen was inflated with carbon dioxide gas. Three ports were made in the single point on the GelPOINT. A 5 mm laparoscope was inserted and showed normal uterus, tubes, and ovaries apart from 2 cm to 3 cm bilateral paratubal cyst. Using the Harmonic Scalpel, those cysts were excised and sent to pathology without difficulty. Suction irrigation of peritoneal cavity. No evidence of endometriosis or adhesions. Abdomen was deflated by removing the GelPOINT and the rectus fascia approximated using Vicryl 0, subcutaneous Vicryl 3-0 for the skin. Infiltration around the umbilicus with Marcaine with epi using 0.25% about 20 mL was used. Hysteroscopy was performed. Weighted speculum was placed inside the vagina. Cervix was grasped with single-tooth tenaculum. Cervix was dilated to Hegar's 8. Cavity length measured at 7 cm. Hysteroscope was inserted and showed normal cavity. Hysteroscope was removed. Sharp curettings were obtained and sent to pathology. The patient tolerated the procedure well. Laps, instrument, and needle counts were correct x2 at the end of the procedure. Tatiana Cruz MD DD/MODL /[id number]
== END | disposition home or self-care (01) ==
LOC: OR 07:07
PROVIDERS: ATTEND Obstetrics & Gynecology
DX: Q50.5 Embryonic cyst of broad ligament (principal); N92.0 Excessive and frequent menstruation with regular cycle; E11.9 Type 2 diabetes mellitus without complications; E03.9 Hypothyroidism, unspecified; M06.9 Rheumatoid arthritis, unspecified; J45.909 Unspecified asthma, uncomplicated; Z88.1 Allergy status to other antibiotic agents; Z91.048 Other nonmedicinal substance allergy status; Z01.812 Encounter for preprocedural laboratory examination
CPT/HCPCS: 36415 ×2; 58558; 58662; 80048; 82948; 84702; 85025; 88304; 88305; J0131; J1100; J1885; J2001; J2250; J2405; J2704; J3010; J1817

== ENCOUNTER 2019-07-10 18:40 | Observation (INO) | payer OTHER ==
[~2019-07-10] VITALS: Ht 167.6 cm; Wt 99.8 kg
[~2019-07-10 18:40] MED LIST changes: -ACETAMINOPHEN 1000 MG/100 ML IV ONE; -BUPIVACAINE 0.5%/EPI 30 ML SDV INJ ONE; -DEXAMETHASONE SOD PHOS INJ 4 MG/ML VIAL ONE; -FENTANYL CITRATE/PF 100MCG/2 ML INJ ONE; -INSULIN REGULAR, HUMAN 100 UNIT/1 ML 3ML VIAL ONE; -KETOROLAC TROMETHAMINE 30 MG/ML VIAL ONE; -LIDOCAINE HCL 2% LOCAL INJ 5 ML SDV VIAL INJ ONE; -MIDAZOLAM HCL 2 MG/2 ML VIAL ONE; -ONDANSETRON HCL INJ 2MG/ML 2ML 2 MG/ML VIAL ONE; -PROPOFOL IV EMULSION 10 MG/ML 20 ML VIAL ONE; -ROCURONIUM BROMIDE 10 MG/ML 5ML VIAL ONE; -SEVOFLURANE INHAL SOLN 250 ML PEN BTL ONE
[2019-07-10] MEDS ORDERED: ONDANSETRON HCL INJ 2MG/ML 2ML 2 MG/ML VIAL IV STA (19:37)
[2019-07-10] MEDS ORDERED: DEXAMETHASONE SOD PHOS 10 MG/1 ML VIAL IV ONE (19:45)
[2019-07-10] MEDS ORDERED: SODIUM CHLORIDE 0.9% 1000ML 1,000 ML IV SCH (19:45)
[2019-07-10] MEDS ORDERED: MORPHINE SULFATE INJ 4 MG/ML INJ 1ML IV NR (19:50)
[2019-07-10 19:55] LABS: BASOPHILS % 0.4 % (0.0-1.0); EOSINOPHILS # (AUTO) 0.2 (0.0-0.4); EOSINOPHILS % 1.9 % (0.0-6.0); HEMATOCRIT 35.7 % (34.2-44.1); HEMOGLOBIN 11.1 g/dL (12.0-16.0); LYMPHOCYTES # (AUTO) 1.5 (1.0-3.2); MEAN CORPUSCULAR HEMOGLOBIN 26.1 pg (28-32); MEAN CORPUSCULAR HGB CONC 31.1 g/dL (31-35); MEAN CORPUSCULAR VOLUME 83.8 fL (81-99); MONOCYTES # (AUTO) 0.5 (0.2-0.8); NEUTROPHILS # (AUTO) 7.8 (2.1-6.9); NEUTROPHILS % 77.5 % (38.7-80.0); PLATELET COUNT 288 x10e3/uL (140-360); RED BLOOD COUNT 4.26 x10e6/uL (3.6-5.1); RED CELL DISTRIBUTION WIDTH 14.4 % (11.7-14.4)
[2019-07-10 20:10] LABS: ALANINE AMINOTRANSFERASE 16 IU/L (0-55); ALBUMIN 3.9 g/dL (3.5-5.0); ALBUMIN/GLOBULIN RATIO 1.6 (0.8-2.0); ALKALINE PHOSPHATASE 57 IU/L (40-150); ANION GAP 11.5 mmol/L (8-16); BLOOD UREA NITROGEN 12 mg/dL (7-26); BUN/CREATININE RATIO 16 (6-25); CALCIUM 8.6 mg/dL (8.4-10.2); CARBON DIOXIDE 25 mmol/L (22-29); CHLORIDE 101 mmol/L (98-107); CREATININE, SERUM 0.75 mg/dL (0.57-1.11); EST GLOMERULAR FILTRATION RATE > 60 ML/MIN (60-); GLUCOSE 348 mg/dL (74-118); POTASSIUM 3.5 mmol/L (3.5-5.1); SODIUM 134 mmol/L (136-145)
[2019-07-10 20:41] LABS: CLARITY,URINE CLEAR (CLEAR); COLOR,URINE YELLOW (YELLOW); KETONES,URINE 2+ (NEGATIVE); LEUKOCYTE ESTERASE ,URINE NEGATIVE (NEGATIVE); NITRITE,URINE NEGATIVE (NEGATIVE); PROTEIN,URINE DIPSTICK NEGATIVE (NEGATIVE); URINE UROBILINOGEN 0.2 mg/dL (0.2 - 1)
[2019-07-10 20:42] LABS: BILIRUBIN,URINE NEGATIVE (NEGATIVE); PREGNANCY TEST, URINE NEGATIVE (NEGATIVE)
[2019-07-10 20:45] LABS: BACTERIA,URINE FEW /HPF; EPITHELIAL CELLS,URINE FEW /LPF; RBC,URINE 0-5 /HPF (0-5); WBC,URINE (MAN) 0-5 /HPF (0-5)
--- NOTE | 2019-07-10 21:18 | Diagnostic Imaging Report ---
EXAM: CHEST 2 VIEWS DATE: 07/10/2019 7:37 PM INDICATION: ^sob ^[id number] ^[id number] COMPARISON: Chest x-ray, 04/19/2019 FINDINGS: Lines and tubes: None Heart size normal. No focal pulmonary opacity, pleural effusion or pneumothorax. There is free air under the right diaphragm. According to history provided, the patient is one day postoperative pelvic surgery. No acute bony abnormality. IMPRESSION: 1. No evidence for acute disease in the chest. 2. Evidence for pneumoperitoneum. History indicates patient is one day postoperative pelvic surgery. In the proper clinical setting, the pneumoperitoneum is an expected postoperative finding but correlation with the surgical history is recommended. If this is not expected then further evaluation may be warranted. Signed by: Dr. Kareem Liang M.D. on 07/10/2019 9:15 PM
[2019-07-10] MEDS ORDERED: KETOROLAC TROMETHAMINE 30 MG/ML VIAL IV STA (21:39)
--- NOTE | 2019-07-10 21:50 | Diagnostic Imaging Report ---
CT Abdomen And Pelvis with Intravenous Contrast INDICATION: Postop abdominal pain, ovarian cyst removal ^abdominal pain ^[id number] ^[id number] TECHNIQUE: Thin collimation axial images obtained from the diaphragm to the level of the pubic symphysis following the uneventful administration of 100 cc of low osmolar, nonionic intravenous contrast. Dose reduction techniques used: Automated exposure control, adjustment of the mAs and/or kVp according to patient size, standardized low-dose protocol, and/or iterative reconstruction technique. RADIATION DOSE: Total DLP: 890.33 mGy*cm Estimated effective dose: (DLP x 0.015 x size factor) mSv CTDIvol has been reviewed. It is below the limits set by the Radiation Protocol Committee (RPC). COMPARISON: CT abdomen/pelvis 12/20/2018. ABDOMEN FINDINGS: Lung Bases: Trace bibasilar atelectasis. Visualized portion mediastinum is normal. Liver: Normal attenuation. No evidence for mass. Gallbladder: Absent. No biliary ductal dilatation. Pancreas: Normal attenuation without mass or ductal dilatation. Spleen: Normal in size. No evidence of mass. Adrenal Glands: No evidence for mass. Kidneys: Right: Normal enhancement. Subcentimeter low attenuating lesion in the medial upper pole is suggestive of a cyst. No hydronephrosis. Left: Normal enhancement. No soft tissue mass. No hydronephrosis. Lymph Nodes: No lymphadenopathy. Aorta: Normal in diameter PELVIS FINDINGS: Bowel: Stomach: Stable postoperative changes suggestive of sleeve gastrectomy. Small Bowel: Normal in caliber with normal wall thickness. Large Bowel: Normal in caliber with normal wall thickness. Appendix: Normal. Bladder: Normal. The uterus is present and normal in morphology. No adnexal mass Peritoneum/retroperitoneum: Diffuse pneumoperitoneum. No loculated fluid collection. Soft tissues: Extensive subcutaneous emphysema in the right lower quadrant abdominal wall extending to the umbilicus. One collection of subcutaneous changes are measures 4.2 x 8.9 cm in the axial plane. There are several droplets of air in right rectus abdominis muscle bundles. No loculated fluid collection to suggest abscess. Bones: Unremarkable for age. IMPRESSION: 1. Pneumoperitoneum and significant subcutaneous emphysema, likely secondary to surgery. 2. No evidence for bowel obstruction or inflammation. Normal appendix. Signed by: Dr. Shu Gonzalez MD on 07/10/2019 9:47 PM
[2019-07-10] MEDS ORDERED: IOPAMIDOL 370 MG/ML 200 ML INFUS..BTL INJ ONE (22:11)
[2019-07-10] MEDS ORDERED: SODIUM CHLORIDE 0.9% 50ML 50 ML ONE (22:11)
[2019-07-10] MEDS ORDERED: IBUPROFEN 600 MG TAB PO STA (22:52)
--- NOTE | 2019-07-10 23:30 | NUR ---
Received report from ER nurse.
[2019-07-10 23:50] VITALS: BP 124/82
--- NOTE | 2019-07-11 00:10 | NUR ---
Patient arrived to the floor via w/c. BS at 284. Page Dr Emery to inform and get home meds reordered. Waiting for call back. Patient c/o of pain = 9. Given pain meds as ordered by MD. Assessment and HX completed. Patient eatting at this time. Continue monitor.
[2019-07-11] MEDS: IBUPROFEN 600 MG TAB PO PRN ×2 (00:49→09:22)
[2019-07-11 00:56] VITALS: BP 127/68
[2019-07-11] MEDS ORDERED: DEXTROSE 50% SYRINGE 50 ML IV PRN ×2 (04:45→05:15)
[2019-07-11] MEDS ORDERED: ETANERCEPT 50 MG SC SCH ×2 (04:45→09:00)
[2019-07-11] MEDS ORDERED: METHOTREXATE SOD 2.5 MG TAB PO SCH (04:45)
[2019-07-11 04:58] VITALS: BP 117/62
[2019-07-11] MEDS: INSULIN REGULAR, HUMAN 100 UNIT/1 ML 3ML VIAL SQ SCH ×3 (07:30→17:27)
[2019-07-11 08:00] VITALS: BP 112/64
[2019-07-11 09:00] VITALS: BP 112/64
[2019-07-11] MEDS ORDERED: LEVOTHYROXINE SODIUM 88 MCG TAB PO SCH (09:00)
[2019-07-11] MEDS ORDERED: GLYBURIDE 5 MG TAB PO SCH (09:00)
[2019-07-11] MEDS: DOCUSATE SODIUM 100 MG CAP PO SCH ×2 (09:21→17:24)
[2019-07-11 12:00] VITALS: BP 165/76
[2019-07-11 16:00] VITALS: BP 118/74
--- NOTE | 2019-07-11 16:35 | Pre Op History & Physical ---
HISTORY OF PRESENT ILLNESS: She is a 34-year-old, status post laparoscopy and removal of paratubal cyst that was done through a single port laparoscope. She came into the ER complaining of severe pain in her neck, sore throat, and chest pain and the pain is referred all the way to the right shoulder and right arm. Dyspnea described as moderate. She had some abdominal pain, but expected after surgery, but difficulty in breathing and palpitations. PAST SURGICAL HISTORY: Laparoscopy. ALLERGIES: NO KNOWN DRUG ALLERGIES. MEDICATIONS: See list for medications. SOCIAL HISTORY: Denies smoking, alcohol, or drug abuse. PHYSICAL EXAMINATION: VITAL SIGNS: Stable. CHEST: Clear to auscultation. CARDIOVASCULAR: Regular rate and rhythm. ABDOMEN: Soft. Slightly tender around incision. HEENT: Inspection of the pharynx looks normal. ASSESSMENT AND PLAN: Status post surgery. The patient is comfortable in bed with no dyspnea and she is showing no signs of distress. Probably her sore throat and neck pain are due to the intubation during the surgery. She feels that her symptoms are improving, so I will send her home on Hurricaine spray as well as Motrin 800 mg. She was asked to come back to the hospital if symptoms do not improve or get worse. I will follow up on her in the office in two weeks. Tatiana Cruz MD DD/GENE /[id number]
--- NOTE | 2019-07-11 18:51 | NUR ---
pt discharged home with prescriptions, medication were explained to pt verbalized understanding, iv site was removed at this time no swelling no redness to site.
[2019-07-16] MEDS ORDERED: METHOTREXATE SOD 2.5 MG TAB PO SCH (09:00)
== END 2019-07-11 18:46 | disposition home or self-care (01) ==
LOC: ER 18:40 → ERHOLD 22:48 → MED/SURG3 23:57
PROVIDERS: ADMIT Obstetrics & Gynecology; ATTEND Obstetrics & Gynecology
DX: J98.2 Interstitial emphysema (principal); Z88.8 Allergy status to other drugs, medicaments and biological substances; J02.9 Acute pharyngitis, unspecified; M54.2 Cervicalgia; Z98.890 Other specified postprocedural states
CPT/HCPCS: 36415 ×2; 71046; 74177; 80053; 81001; 81025; 82948; 85025; 93005; 99284; G0378 ×2; J1100; J1885; J2270; J2405; J7030; Q9967

== ENCOUNTER 2024-06-14 11:21 | Observation (INO) | payer OTHER ==
[2024-06-14] VITALS (8 sets, daily range): BP systolic 104–120; BP diastolic 67–76; PULSE 72–93; RESP 16–18; TEMP 97–98.3; O2SAT 99–100
[~2024-06-14] VITALS: Ht 167.6 cm; Wt 86.4 kg
[2024-06-14] MEDS ORDERED: IOPAMIDOL 370 MG/ML 100 ML INFUS..BTL INJ ONE (12:24)
[2024-06-14] MEDS: SODIUM CHLORIDE 0.9% 1000ML 1,000 ML IV ONE (13:09)
[2024-06-14] MEDS ORDERED: SODIUM CHLORIDE FLUSH 10 ML SYR INJ PRN (14:00)
[2024-06-14] MEDS ORDERED: DOCUSATE SODIUM 100 MG CAP PO PRN (16:00)
[2024-06-14] MEDS ORDERED: LIDOCAINE 4% PATCH TP PRN (16:00)
[2024-06-14] MEDS ORDERED: ALBUTEROL/IPRATROPIUM 3 ML NEB NEB PRN (16:00)
[2024-06-14] MEDS ORDERED: HYDRALAZINE HCL 20 MG/ML VIAL IV PRN (16:00)
[2024-06-14] MEDS ORDERED: BENZONATATE 100 MG CAP PO PRN (16:00)
[2024-06-14] MEDS ORDERED: POTASSIUM CHLORIDE 20 MEQ TAB CR PO PRN (16:00)
[2024-06-14] MEDS ORDERED: SIMETHICONE 80 MG CHEW PO PRN (16:00)
[2024-06-14] MEDS ORDERED: DIPHENHYDRAMINE HCL 25 MG CAP PO PRN (16:00)
[2024-06-14] MEDS ORDERED: DEXTROSE 50% SYRINGE 50 ML IV PRN ×2 (16:00)
[2024-06-14] MEDS: INSULIN LISPRO 100 UNIT/1 ML 3ML VIAL SQ SCH (16:30)
[2024-06-14] MEDS: SODIUM CHLORIDE 0.9% 1000ML 1,000 ML IV SCH (16:54)
[2024-06-14] MEDS: METOCLOPRAMIDE HCL 10 MG/2ML VIAL IV SCH (16:55)
[2024-06-14] MEDS: KETOROLAC TROMETHAMINE 30 MG/ML VIAL IV SCH (16:55)
[2024-06-14] MEDS: Morphine 2mg Syringe 2 MG/ML SYR IV PRN (16:56)
[2024-06-14] MEDS: ENOXAPARIN SOD INJ 40 MG/0.4 ML SYR SC SCH (16:56)
[2024-06-14] MEDS ORDERED: GABAPENTIN300 MG PO (18:49)
[2024-06-14] MEDS ORDERED: LANTUS 3ML100 UNITS/ SQ (18:49)
[2024-06-14] MEDS ORDERED: NOVOLIN R100 UNIT/3 (18:49)
[2024-06-14] MEDS: HYDROCODONE/APAP 5MG-325MG TAB PO PRN (19:02)
[2024-06-14] MEDS: LEVOFLOXACIN 500 MG TAB PO SCH (20:23)
[2024-06-14] MEDS ORDERED: MELATONIN 5 MG TABLET PO PRN (21:00)
[2024-06-14 23:09] LABS: TROPONIN I 0.006 ng/mL (0-0.300)
[2024-06-15] VITALS (11 sets, daily range): BP systolic 91–112; BP diastolic 56–75; PULSE 69–80; RESP 17–18; TEMP 97.5–98.4; O2SAT 97–100
[2024-06-15 06:11] LABS: BASOPHILS # (AUTO) 0.1 (0.0-0.1); BASOPHILS % 1.4 % (0.0-1.0); EOSINOPHILS # (AUTO) 0.5 (0.0-0.4); EOSINOPHILS % 10.7 % (0.0-6.0); HEMATOCRIT 29.2 % (34.2-44.1); HEMOGLOBIN 7.6 g/dL (12.0-16.0); LYMPHOCYTES # (AUTO) 1.5 (1.0-3.2); LYMPHOCYTES % 30.8 % (18.0-39.1); MEAN CORPUSCULAR HEMOGLOBIN 19.7 pg (28-32); MEAN CORPUSCULAR VOLUME 75.6 fL (81-99); MONOCYTES # (AUTO) 0.3 (0.2-0.8); MONOCYTES % 5.4 % (4.4-11.3); NEUTROPHILS # (AUTO) 2.5 (2.1-6.9); NEUTROPHILS % 51.5 % (38.7-80.0); PLATELET COUNT 262 x10e3/uL (140-360); RED BLOOD COUNT 3.86 x10e6/uL (3.6-5.1); RED CELL DISTRIBUTION WIDTH 18.2 % (11.7-14.4); WHITE BLOOD COUNT 4.84 x10e3/uL (4.8-10.8)
[2024-06-15 06:35] LABS: ANION GAP 13.5 mmol/L (8-16); CALCIUM 8.3 mg/dL (8.4-10.2); CREATININE, SERUM 0.55 mg/dL (0.57-1.11); MAGNESIUM 1.6 MG/DL (1.3-2.1); PHOSPHORUS 4.6 MG/DL (2.3-4.7); POTASSIUM 3.5 mmol/L (3.5-5.1)
[2024-06-15 06:41] LABS: TROPONIN I 0.005 ng/mL (0-0.300)
[2024-06-15 06:43] LABS: CHOL/HDL RATIO 2.2 (3.0-3.6)
[2024-06-15 06:57] LABS: THYROID STIMULATING HORMONE 3.224 uIU/mL (0.350-4.940)
[2024-06-15] MEDS: ONDANSETRON HCL INJ 2MG/ML 2ML 2 MG/ML VIAL IV PRN (08:46)
[2024-06-15] MEDS: PANTOPRAZOLE SOD 40 MG TABEC PO SCH (08:47)
[2024-06-15 11:23] LABS: BASOPHILS # (AUTO) 0.1 (0.0-0.1); BASOPHILS % 1.1 % (0.0-1.0); EOSINOPHILS # (AUTO) 0.4 (0.0-0.4); EOSINOPHILS % 9.8 % (0.0-6.0); HEMATOCRIT 30.2 % (34.2-44.1); LYMPHOCYTES # (AUTO) 1.2 (1.0-3.2); LYMPHOCYTES % 27.4 % (18.0-39.1); MEAN CORPUSCULAR HEMOGLOBIN 20.1 pg (28-32); MEAN CORPUSCULAR HGB CONC 26.5 g/dL (31-35); MEAN CORPUSCULAR VOLUME 75.9 fL (81-99); MONOCYTES # (AUTO) 0.3 (0.2-0.8); MONOCYTES % 6.5 % (4.4-11.3); NEUTROPHILS # (AUTO) 2.5 (2.1-6.9); PLATELET COUNT 266 x10e3/uL (140-360); RED BLOOD COUNT 3.98 x10e6/uL (3.6-5.1); RED CELL DISTRIBUTION WIDTH 18.2 % (11.7-14.4); WHITE BLOOD COUNT 4.49 x10e3/uL (4.8-10.8)
[2024-06-15 11:44] LABS: % IRON SATURATION 5 % (15-50); IRON 22 ug/dL (50-170); TOTAL IRON BINDING CAPACITY 451 ug/dL (261-478); TRANSFERRIN 322 mg/dL (180-382)
[2024-06-15] MEDS ORDERED: IOPAMIDOL 370 MG/ML 100 ML INFUS..BTL INJ ONE (12:21)
[2024-06-15] MEDS: ACETAMINOPHEN 325 MG TAB PO PRN (12:26)
[2024-06-15] MEDS: SODIUM FERRIC GLUCONATE COMPLX 125 MG in SODIUM CHLORIDE 0.9% 100 ML IV SCH (16:25)
[2024-06-15] MEDS: KETOROLAC TROMETHAMINE 30 MG/ML VIAL IV SCH (18:43)
[2024-06-16 00:50] VITALS: BP 102/63; PULSE 76; RESP 17; TEMP 98.2; O2SAT 99
[2024-06-16 02:08] VITALS: BP 102/63; PULSE 76; RESP 17; TEMP 98.2; O2SAT 99
[2024-06-16 04:15] VITALS: BP 106/56; PULSE 75; RESP 17; TEMP 98.2; O2SAT 100
[2024-06-16 04:16] VITALS: BP 106/56; PULSE 75; RESP 17; TEMP 98.2; O2SAT 100
[2024-06-16 05:22] LABS: HEMATOCRIT 28.4 % (34.2-44.1); HEMOGLOBIN 7.5 g/dL (12.0-16.0)
[2024-06-16] MEDS: LEVOTHYROXINE SODIUM 112 MCG TAB PO SCH (06:12)
[2024-06-16 08:00] VITALS: BP 110/50; PULSE 83; RESP 17; TEMP 97.6; O2SAT 97
[2024-06-16] MEDS: GABAPENTIN 300 MG CAP PO SCH (09:20)
[2024-06-16 12:00] VITALS: BP 110/68; PULSE 81; RESP 18; TEMP 97.5; O2SAT 97
== END 2024-06-16 15:20 | disposition home or self-care (01) ==
LOC: FSED 11:33 → ERHOLD 14:01 → MED/SURG 15:45
PROVIDERS: ADMIT Internal Medicine; ATTEND Internal Medicine
DX: R07.89 Other chest pain (principal); R11.2 Nausea with vomiting, unspecified; J01.90 Acute sinusitis, unspecified; D50.9 Iron deficiency anemia, unspecified; M25.512 Pain in left shoulder; N83.8 Other noninflammatory disorders of ovary, fallopian tube and broad ligament; R16.1 Splenomegaly, not elsewhere classified; M08.00 Unspecified juvenile rheumatoid arthritis of unspecified site; E10.43 Type 1 diabetes mellitus with diabetic autonomic (poly)neuropathy; K31.84 Gastroparesis; Z79.4 Long term (current) use of insulin; E03.9 Hypothyroidism, unspecified; G89.29 Other chronic pain; M54.9 Dorsalgia, unspecified; J45.909 Unspecified asthma, uncomplicated; E66.9 Obesity, unspecified; Z68.30 Body mass index [BMI] 30.0-30.9, adult; Z98.84 Bariatric surgery status; Z11.52 Encounter for screening for COVID-19; Z79.899 Other long term (current) drug therapy
CPT/HCPCS: 36415 ×3; 71046; 71260; 74177; 80048; 80061; 82550 ×2; 83036; 83540; 83735; 84100; 84443; 84466; 84484 ×2; 84702; 85014; 85018; 85025; 93005; 99283; G0378 ×3; J1650 ×2; J1885 ×3; J2270 ×3; J2405 ×2; J2765 ×3; J2916; J7030 ×2; J7050; Q9967 ×2; S0164 ×2

== ENCOUNTER 2024-08-14 14:22 | Emergency (ER) | payer OTHER ==
[~2024-08-14] VITALS: Ht 167.6 cm; Wt 86.2 kg
[~2024-08-14 14:22] MED LIST changes: +GABAPENTIN300 MG PO; +LANTUS 3ML100 UNITS/ SQ; +NOVOLIN R100 UNIT/3
[2024-08-14 14:31] VITALS: TEMP 98.8
[2024-08-14 15:12] LABS: COLOR,URINE YELLOW (YELLOW)
[2024-08-14 15:13] LABS: BILIRUBIN,URINE NEGATIVE (NEGATIVE); CLARITY,URINE CLEAR (CLEAR); EPITHELIAL CELLS,URINE FEW /LPF; GLUCOSE, URINE 500 (NEGATIVE); KETONES,URINE NEGATIVE (NEGATIVE); LEUKOCYTE ESTERASE ,URINE NEGATIVE (NEGATIVE); NITRITE,URINE NEGATIVE (NEGATIVE); PH,URINE 6.5 (5 - 7); PROTEIN,URINE DIPSTICK NEGATIVE (NEGATIVE); RBC,URINE 0-5 /HPF (0-5); URINE UROBILINOGEN 0.2 mg/dL (0.2 - 1)
[2024-08-14 15:15] LABS: BACTERIA,URINE MODERATE /HPF
[2024-08-14 15:16] LABS: PREGNANCY TEST, URINE NEGATIVE (NEGATIVE)
[2024-08-14 15:22] LABS: HEMATOCRIT 33.3 % (34.2-44.1); MEAN CORPUSCULAR HEMOGLOBIN 22.1 pg (28-32); MEAN CORPUSCULAR VOLUME 73.7 fL (81-99); PLATELET COUNT 335 x10e3/uL (140-360); RED BLOOD COUNT 4.52 x10e6/uL (3.6-5.1); RED CELL DISTRIBUTION WIDTH 19.6 % (11.7-14.4); WHITE BLOOD COUNT 5.56 x10e3/uL (4.8-10.8)
[2024-08-14 15:39] LABS: ALBUMIN 3.7 g/dL (3.5-5.0); ALBUMIN/GLOBULIN RATIO 1.6 (0.8-2.0); BILIRUBIN,TOTAL 1.2 mg/dL (0.2-1.2); CALCIUM 8.6 mg/dL (8.4-10.2); CREATININE, SERUM 0.74 mg/dL (0.57-1.11)
[2024-08-14 16:26] LABS: EOSINOPHILS % (MANUAL) 1 % (0-7); LYMPHOCYTES % (MANUAL) 24 % (19-48); MONOCYTES % (MANUAL) 3 % (3.4-9.0); NEUTROPHILS % (MANUAL) 72 % (40-74); PLATELET ESTIMATE ADEQUATE; PLATELET MORPHOLOGY COMMENT NORMAL; RBC MORPHOLOGY COMMENT NORMAL
[2024-08-14 18:15] VITALS: PULSE 71; RESP 16; O2SAT 97
== END 2024-08-14 18:18 | disposition home or self-care (01) ==
LOC: ER 15:56
DX: R53.83 Other fatigue (principal); R07.89 Other chest pain; M79.661 Pain in right lower leg; E11.65 Type 2 diabetes mellitus with hyperglycemia; E03.9 Hypothyroidism, unspecified; M06.9 Rheumatoid arthritis, unspecified; M54.9 Dorsalgia, unspecified; G89.29 Other chronic pain; Z98.84 Bariatric surgery status
CPT/HCPCS: 36415; 71045; 80053; 81001; 81025; 83880; 84484; 85007; 85027; 85379; 93005; 93971; 99284

== ENCOUNTER 2025-01-15 15:29 | Emergency (ER) | payer OTHER ==
[~2025-01-15] VITALS: Ht 157.5 cm; Wt 79.4 kg
[2025-01-15 15:30] VITALS: PULSE 89; RESP 18; TEMP 98.7
[2025-01-15] MEDS ORDERED: LACTATED RINGER'S 1,000 ML INJ ONE (16:30)
[2025-01-15 17:45] VITALS: BP 120/74; PULSE 74; RESP 18; TEMP 98; O2SAT 99
== END 2025-01-15 17:48 | disposition home or self-care (01) ==
LOC: FSED 16:07
DX: E11.65 Type 2 diabetes mellitus with hyperglycemia (principal); Z79.4 Long term (current) use of insulin; Z79.84 Long term (current) use of oral hypoglycemic drugs; E03.9 Hypothyroidism, unspecified; J45.909 Unspecified asthma, uncomplicated; M54.9 Dorsalgia, unspecified
CPT/HCPCS: 36415; 82948; 87086; 99283

== ENCOUNTER 2025-03-17 12:34 | Emergency (ER) | payer OTHER ==
[~2025-03-17] VITALS: Ht 157.5 cm; Wt 79.4 kg
[2025-03-17 13:11] VITALS: PULSE 75; RESP 16; TEMP 98.4
[2025-03-17 15:15] LABS: BASOPHILS % 1.0 % (0.0-1.0); EOSINOPHILS % 10.9 % (0.0-6.0); LYMPHOCYTES % 19.8 % (18.0-39.1); MONOCYTES % 4.1 % (4.4-11.3); NEUTROPHILS % 64.1 % (38.7-80.0); RED CELL DISTRIBUTION WIDTH 16.8 % (11.7-14.4)
[2025-03-17 15:23] LABS: AMPHETAMINES SCREEN,URINE NEGATIVE (NEGATIVE); CANNABINOIDS SCREEN,URINE NEGATIVE (NEGATIVE); COCAINE SCREEN,URINE NEGATIVE (NEGATIVE); LEUKOCYTE ESTERASE ,URINE NEGATIVE (NEGATIVE); METHADONE SCREEN, URINE NEGATIVE (NEGATIVE); OPIATES SCREEN,URINE NEGATIVE (NEGATIVE); PROTEIN,URINE DIPSTICK NEGATIVE (NEGATIVE); URINE UROBILINOGEN 0.2 mg/dL (0.2 - 1)
[2025-03-17 15:24] LABS: INR 1.04
[2025-03-17] MEDS: ONDANSETRON HCL INJ 2MG/ML 2ML 2 MG/ML VIAL IV STA (15:28)
[2025-03-17] MEDS: SODIUM CHLORIDE 0.9% 1000ML 1,000 ML IV STA (15:28)
[2025-03-17 15:32] LABS: EST GLOMERULAR FILTRATION RATE 113 ML/MIN (>=60)
[2025-03-17 15:39] LABS: WBC,URINE (MAN) 0-5 /HPF (0-5)
[2025-03-17] MEDS: KETOROLAC TROMETHAMINE 30 MG/ML VIAL IM STA (17:23)
[2025-03-17] MEDS: HYDROCODONE/APAP 5MG-325MG TAB PO ONE (17:23)
[2025-03-17 18:18] VITALS: BP 134/76; PULSE 77; RESP 15; O2SAT 100
== END 2025-03-17 18:20 | disposition home or self-care (01) ==
LOC: ER 13:13
DX: E11.65 Type 2 diabetes mellitus with hyperglycemia (principal); E03.9 Hypothyroidism, unspecified; M54.9 Dorsalgia, unspecified; G89.29 Other chronic pain; J45.909 Unspecified asthma, uncomplicated; M06.9 Rheumatoid arthritis, unspecified; Z98.84 Bariatric surgery status
CPT/HCPCS: 36415; 71045; 80053; 80307; 81001; 82948; 83735; 84484; 84702; 85025; 85610; 85730; 87086; 99284; J1885; J2405; J2470; J7030